=== PATIENT | male | born 1965 | race Two or more races ===

== ENCOUNTER 2018-10-06 16:49 | Inpatient (IN) | payer MEDICAID ==
[~2018-10-06] VITALS: Ht 200.7 cm; Wt 69.1 kg
[2018-10-06] MEDS ORDERED: cefTRIAXone 1GM/50ML D5W 50 ML IV ONE (19:30)
[2018-10-06] MEDS ORDERED: ONDANSETRON HCL 4 MG/2 ML VIAL IV PRN ×2 (19:30→23:15)
[2018-10-06] MEDS ORDERED: MORPHINE SULFATE 4 MG/ML SYR/VIAL IV PRN (19:30)
[2018-10-06] MEDS ORDERED: VANCOMYCIN 1GM/250ML 250 ML IV ONE (19:30)
[2018-10-06 20:24] LABS: Basophils # (auto) 0.1 uL; Basophils % (auto) 0.8 % (0.0-2.0); Eosinophils # (auto) 0.3 uL; Eosinophils % (auto) 3.8 % (0.0-7.0); Hematocrit 29.1 % (41.0-53.0); Hemoglobin 9.6 g/dL (13.5-17.5); Lymphocytes % (auto) 12.9 % (10.0-50.0); Mean Corpuscular Hemoglobin 28.6 pg (28.0-32.0); Mean Corpuscular Hgb Conc. 33.1 g/dL (32.0-36.0); Mean Corpuscular Volume 86.2 fL (80.0-100.0); Monocytes # (auto) 1.1 uL; Monocytes % (auto) 14.2 % (0.0-12.0); Neutrophils # (auto) 5.1 uL; Neutrophils % (auto) 68.3 % (37.0-80.0); Platelet Count (auto) 332 10^3/uL (140-450); Red Blood Cells 3.38 10^6/uL (4.5-5.90); Red Cell Distribution Width 15.1 % (11.8-14.3); White Blood Cell 7.5 10^3/uL (4.4-10.8)
[2018-10-06 20:36] LABS: Albumin 2.3 g/dL (3.4-5.0)
[2018-10-06 20:39] LABS: BUN/Creatinine Ratio 15.2; Bilirubin, Total 0.3 mg/dL (0.2-1.0); Total Protein 6.6 g/dL (6.4-8.2)
[2018-10-06 20:40] LABS: INR 0.89 (0.9-1.15); Partial Thromboplastin Time 30.8 sec (23.78-33.04); Prothrombin Time 9.6 sec (9.27-12.13)
[2018-10-06 20:50] LABS: Potassium 5.9 mmol/L (3.5-5.1)
[2018-10-06] MEDS ORDERED: DEXTROSE (50%) 50ML SYRG IV ONE (21:30)
[2018-10-06] MEDS ORDERED: InsuLIN REG 1unit/0.01ml Soln (100units/ml) IV ONE (21:30)
[2018-10-06] MEDS ORDERED: SODIUM POLYSTYRENE SULF 15 GM POWDER PR ONE (21:30)
[2018-10-06] MEDS ORDERED: SODIUM BICARBONATE 8.4 % INJ 50ML VIAL IV ONE (21:30)
[2018-10-06] MEDS ORDERED: ACETAMINOPHEN 325 MG TAB PO PRN (23:15)
[2018-10-06] MEDS ORDERED: DEXTROSE (50%) 50ML SYRG IV PRN (23:15)
[2018-10-06] MEDS ORDERED: HYDROcodone-ACET 5/325MG TAB PO PRN (23:15)
[2018-10-06] MEDS ORDERED: cloNIDine HCL 0.1 MG TAB PO PRN (23:15)
[2018-10-06] MEDS ORDERED: TEMAZEPAM 15 MG CAP PO PRN (23:15)
[2018-10-07] VITALS (7 sets, daily range): BP systolic 128–162; BP diastolic 77–98
[2018-10-07] MEDS ORDERED: DEXTROSE 50% SYRINGE 50 ML IV ONE (00:06)
[2018-10-07] MEDS: ACCU-CHEK COMFORT CURVE STRIP VI SCH ×5 (00:08→23:56)
[2018-10-07] MEDS: CLINDAMYCIN 600MG IV 50 ML IV SCH ×4 (00:09→21:59)
[2018-10-07 00:15] LABS: BUN/Creatinine Ratio 14.1; Calcium 7.9 mg/dL (8.5-10.1); Potassium 4.6 mmol/L (3.5-5.1)
[2018-10-07] MEDS ORDERED: DEXTROSE (50%) 50ML SYRG IV ONE (00:15)
[2018-10-07 00:18] LABS: Bilirubin, Total 0.3 mg/dL (0.2-1.0)
[2018-10-07] MEDS ORDERED: PANC3600 PO (04:45)
[2018-10-07] MEDS ORDERED: AMLO5TAB13 PO (04:46)
[2018-10-07] MEDS ORDERED: GABA300C10 PO (04:48)
[2018-10-07] MEDS ORDERED: FAMO-12 PO (04:49)
[2018-10-07] MEDS ORDERED: FER325T PO (04:52)
[2018-10-07] MEDS ORDERED: CARV12.544 PO (04:54)
[2018-10-07] MEDS ORDERED: LOSA-46 PO (04:56)
[2018-10-07] MEDS: InsuLIN REG 1unit/0.01ml Soln (100units/ml) SC SCH ×4 (06:00→18:00)
[2018-10-07 06:31] LABS: Basophils # (auto) 0.1 uL; Basophils % (auto) 0.8 % (0.0-2.0); Eosinophils # (auto) 0.1 uL; Hematocrit 27.5 % (41.0-53.0); Hemoglobin 9.1 g/dL (13.5-17.5); Lymphocytes # (auto) 0.8 uL; Lymphocytes % (auto) 11.7 % (10.0-50.0); Mean Corpuscular Hemoglobin 28.7 pg (28.0-32.0); Mean Corpuscular Hgb Conc. 33.2 g/dL (32.0-36.0); Mean Corpuscular Volume 86.6 fL (80.0-100.0); Monocytes # (auto) 0.7 uL; Monocytes % (auto) 10.1 % (0.0-12.0); Neutrophils # (auto) 5.3 uL; Neutrophils % (auto) 75.4 % (37.0-80.0); Nucleated Red Blood Cells % 0.1 %; Platelet Count (auto) 305 10^3/uL (140-450); Red Blood Cells 3.18 10^6/uL (4.5-5.90); Red Cell Distribution Width 15.3 % (11.8-14.3)
[2018-10-07 06:51] LABS: Albumin 1.8 g/dL (3.4-5.0); Calcium 7.7 mg/dL (8.5-10.1); Potassium 4.9 mmol/L (3.5-5.1)
[2018-10-07 06:54] LABS: Bilirubin, Total 0.2 mg/dL (0.2-1.0); Total Protein 5.5 g/dL (6.4-8.2)
[2018-10-07] MEDS: CREON 36000 UNIT PO SCH ×3 (08:15→18:02)
[2018-10-07] MEDS ORDERED: PNEUMOCOCCAL VACC POLYS 25 MCG/0.5 ML VIAL IM ONE (09:00)
[2018-10-07 10:11] LABS: Cholesterol 177 mg/dL (< 200)
[2018-10-07 10:14] LABS: HDL Cholesterol 46 mg/dL (40-59); LDL Cholesterol 111 mg/dL (< 100); Triglycerides 136 mg/dL (< 150)
[2018-10-07] MEDS: ENOXAPARIN SOD 30 MG/0.3 ML SYRINGE SC SCH (11:29)
[2018-10-07] MEDS: FAMOTIDINE 20 MG TAB PO SCH (11:31)
[2018-10-07] MEDS: GABAPENTIN 300 MG CAP PO SCH ×2 (15:44→22:00)
[2018-10-07] MEDS: FERROUS SULFATE 325 MG TAB PO SCH (18:02)
[2018-10-07 20:13] LABS: Urine Bacteria NONE SEEN /hpf (None Seen); Urine Blood 1+ /uL (Negative); Urine Mucus FEW (None Seen); Urine Specific Gravity 1.014 (1.001-1.035); Urine WBC 2 /hpf (0 - 3)
[2018-10-07 20:17] LABS: Alcohol, Urine < 3.0 mg/dL (0-5); Amphetamine Screen, Urine NEGATIVE (NEGATIVE); Barbiturate Scree,Urine NEGATIVE (NEGATIVE); Benzodiazephine Screen, Urine NEGATIVE (NEGATIVE); Cannabinoid Screen, Urine NEGATIVE (NEGATIVE); Cocaine Screen, Urine NEGATIVE (NEGATIVE); Opiate Scree,Urine NEGATIVE (NEGATIVE); Phencyclidine Screen, Urine NEGATIVE (NEGATIVE)
[2018-10-07] MEDS: cefTRIAXone 1GM/50ML D5W 50 ML IV SCH (20:26)
[2018-10-07] MEDS: CARVEDILOL 12.5 MG TAB PO SCH (21:59)
[2018-10-08] MEDS: InsuLIN REG 1unit/0.01ml Soln (100units/ml) SC SCH ×4 (00:03→18:21)
[2018-10-08 05:00] VITALS: BP 156/83
[2018-10-08 05:05] LABS: Basophils # (auto) 0.1 uL; Basophils % (auto) 1.2 % (0.0-2.0); Eosinophils # (auto) 0.3 uL; Eosinophils % (auto) 5.3 % (0.0-7.0); Hematocrit 29.9 % (41.0-53.0); Lymphocytes # (auto) 1.3 uL; Lymphocytes % (auto) 22.5 % (10.0-50.0); Mean Corpuscular Hemoglobin 28.9 pg (28.0-32.0); Mean Corpuscular Hgb Conc. 33.4 g/dL (32.0-36.0); Mean Corpuscular Volume 86.5 fL (80.0-100.0); Monocytes # (auto) 0.8 uL; Monocytes % (auto) 13.2 % (0.0-12.0); Neutrophils # (auto) 3.4 uL; Neutrophils % (auto) 57.8 % (37.0-80.0); Platelet Count (auto) 367 10^3/uL (140-450); Red Blood Cells 3.45 10^6/uL (4.5-5.90); Red Cell Distribution Width 15.5 % (11.8-14.3); White Blood Cell 5.9 10^3/uL (4.4-10.8)
[2018-10-08 05:29] LABS: Calcium 8.1 mg/dL (8.5-10.1); Potassium 4.3 mmol/L (3.5-5.1)
[2018-10-08] MEDS: ACCU-CHEK COMFORT CURVE STRIP VI SCH ×3 (05:55→18:17)
[2018-10-08] MEDS: CLINDAMYCIN 600MG IV 50 ML IV SCH ×3 (05:59→22:12)
[2018-10-08] MEDS: GABAPENTIN 300 MG CAP PO SCH ×3 (06:17→22:13)
[2018-10-08] MEDS: CREON 36000 UNIT PO SCH ×3 (08:31→18:21)
[2018-10-08] MEDS: FERROUS SULFATE 325 MG TAB PO SCH ×2 (08:31→18:21)
[2018-10-08 09:19] VITALS: BP 111/73
[2018-10-08] MEDS: FAMOTIDINE 20 MG TAB PO SCH (10:00)
[2018-10-08] MEDS ORDERED: LOSARTAN POTASSIUM 50 MG TAB PO SCH (10:00)
[2018-10-08] MEDS: THIAMINE HCL 100 MG TAB PO SCH (10:30)
[2018-10-08] MEDS: MULTIPLE VITAMINS W/ MINERALS TAB PO SCH (10:31)
[2018-10-08] MEDS: ENOXAPARIN SOD 30 MG/0.3 ML SYRINGE SC SCH (10:31)
[2018-10-08] MEDS: FOLIC ACID 1 MG TAB PO SCH (10:31)
[2018-10-08] MEDS: CARVEDILOL 12.5 MG TAB PO SCH ×2 (10:32→22:13)
[2018-10-08] MEDS: amLODIPine BESYLATE 5 MG TAB PO SCH (10:33)
[2018-10-08] MEDS: SODIUM BICARBONATE 50ML VIAL 50 ML in SOD CHL 0.45% 1,000 ML IV SCH ×2 (12:52→22:14)
[2018-10-08 13:29] VITALS: BP 137/88
[2018-10-08 13:48] LABS: Creatinine, Urine 67.8 mg/dL (30.0-125.0)
[2018-10-08 13:49] LABS: Protein, Urine 463.7 mg/dL (0.0-11.9)
[2018-10-08 17:00] VITALS: BP 108/68
[2018-10-08] MEDS: cefTRIAXone 1GM/50ML D5W 50 ML IV SCH (20:16)
[2018-10-08 22:00] VITALS: BP 117/66
[2018-10-09] MEDS: InsuLIN REG 1unit/0.01ml Soln (100units/ml) SC SCH ×4 (00:26→17:37)
[2018-10-09] MEDS: ACCU-CHEK COMFORT CURVE STRIP VI SCH ×4 (00:27→17:36)
[2018-10-09 05:50] VITALS: BP 132/75
[2018-10-09 05:53] LABS: Phosphorus 5.6 mg/dL (2.5-4.90); Uric Acid 6.3 mg/dL (3.5-7.2)
[2018-10-09 05:56] LABS: Albumin 1.7 g/dL (3.4-5.0); BUN/Creatinine Ratio 14.6; Calcium 7.3 mg/dL (8.5-10.1)
[2018-10-09 05:58] LABS: Bilirubin, Total 0.1 mg/dL (0.2-1.0); Total Protein 5.5 g/dL (6.4-8.2)
[2018-10-09] MEDS: GABAPENTIN 300 MG CAP PO SCH ×3 (06:12→21:49)
[2018-10-09] MEDS: CLINDAMYCIN 600MG IV 50 ML IV SCH ×3 (06:12→21:47)
[2018-10-09] MEDS: FERROUS SULFATE 325 MG TAB PO SCH ×2 (07:58→17:40)
[2018-10-09] MEDS: CREON 36000 UNIT PO SCH ×3 (07:59→18:02)
[2018-10-09 09:04] VITALS: BP 109/69
[2018-10-09] MEDS: ENOXAPARIN SOD 30 MG/0.3 ML SYRINGE SC SCH (09:52)
[2018-10-09] MEDS: THIAMINE HCL 100 MG TAB PO SCH (09:53)
[2018-10-09] MEDS: FOLIC ACID 1 MG TAB PO SCH (09:53)
[2018-10-09] MEDS: MULTIPLE VITAMINS W/ MINERALS TAB PO SCH (09:53)
[2018-10-09] MEDS: FAMOTIDINE 20 MG TAB PO SCH (09:53)
[2018-10-09] MEDS: CARVEDILOL 12.5 MG TAB PO SCH ×2 (10:01→21:47)
[2018-10-09] MEDS: amLODIPine BESYLATE 5 MG TAB PO SCH (10:02)
[2018-10-09] MEDS: SODIUM BICARBONATE 50ML VIAL 50 ML in SOD CHL 0.45% 1,000 ML IV SCH ×2 (10:43→19:31)
[2018-10-09] MEDS ORDERED: ERGOCALCIFEROL 50,000 UNIT(1.25MG) CAP PO SCH (10:45)
[2018-10-09] MEDS ORDERED: LIDOCAINE 2% (LOCAL ANESTH.) PF 5ml SDV ONE (11:10)
[2018-10-09 12:24] VITALS: BP 144/87
[2018-10-09 16:39] VITALS: BP 108/71
[2018-10-09] MEDS: cefTRIAXone 1GM/50ML D5W 50 ML IV SCH (20:19)
[2018-10-09 22:00] VITALS: BP 115/71
[2018-10-10] MEDS: InsuLIN REG 1unit/0.01ml Soln (100units/ml) SC SCH ×5 (00:31→23:56)
[2018-10-10] MEDS: ACCU-CHEK COMFORT CURVE STRIP VI SCH ×5 (00:31→23:46)
[2018-10-10 05:00] VITALS: BP 136/79
[2018-10-10 05:05] LABS: RPR Non Reactive (Non Reactive)
[2018-10-10] MEDS: SODIUM BICARBONATE 50ML VIAL 50 ML in SOD CHL 0.45% 1,000 ML IV SCH ×2 (06:14→15:15)
[2018-10-10] MEDS: GABAPENTIN 300 MG CAP PO SCH ×3 (06:14→21:25)
[2018-10-10] MEDS: CLINDAMYCIN 600MG IV 50 ML IV SCH ×3 (06:14→21:24)
[2018-10-10 06:45] LABS: Albumin 1.7 g/dL (3.4-5.0); Calcium 7.6 mg/dL (8.5-10.1); Potassium 4.7 mmol/L (3.5-5.1)
[2018-10-10 06:49] LABS: BUN/Creatinine Ratio 15.6; Bilirubin, Total 0.1 mg/dL (0.2-1.0); Total Protein 5.5 g/dL (6.4-8.2)
[2018-10-10] MEDS: CREON 36000 UNIT PO SCH ×3 (07:57→17:49)
[2018-10-10] MEDS: FERROUS SULFATE 325 MG TAB PO SCH ×2 (07:57→17:49)
[2018-10-10 08:05] LABS: Immunoglobulin G, Serum 829 mg/dL (700-1600)
[2018-10-10 09:10] VITALS: BP 125/74
[2018-10-10] MEDS: ENOXAPARIN SOD 30 MG/0.3 ML SYRINGE SC SCH (09:32)
[2018-10-10] MEDS: amLODIPine BESYLATE 5 MG TAB PO SCH (09:33)
[2018-10-10] MEDS: MULTIPLE VITAMINS W/ MINERALS TAB PO SCH (09:33)
[2018-10-10] MEDS: THIAMINE HCL 100 MG TAB PO SCH (09:33)
[2018-10-10] MEDS: FOLIC ACID 1 MG TAB PO SCH (09:33)
[2018-10-10] MEDS: CHOLECALCIFEROL (VITD3) 1,000 UNIT TAB PO SCH (09:34)
[2018-10-10] MEDS: CARVEDILOL 12.5 MG TAB PO SCH ×2 (09:34→21:25)
[2018-10-10] MEDS: FAMOTIDINE 20 MG TAB PO SCH (09:34)
[2018-10-10 11:16] VITALS: BP 121/78
[2018-10-10] MEDS ORDERED: HYDROcodone-ACET 5/325MG TAB PO PRN (13:15)
[2018-10-10 16:48] VITALS: BP 130/86
[2018-10-10] MEDS: cefTRIAXone 1GM/50ML D5W 50 ML IV SCH (20:33)
[2018-10-10 21:33] VITALS: BP 137/80
[2018-10-11] MEDS: SODIUM BICARBONATE 50ML VIAL 50 ML in SOD CHL 0.45% 1,000 ML IV SCH ×2 (03:09→19:02)
[2018-10-11 05:00] VITALS: BP 124/73
[2018-10-11 05:01] LABS: Basophils # (auto) 0.1 uL; Basophils % (auto) 1.3 % (0.0-2.0); Eosinophils # (auto) 0.3 uL; Eosinophils % (auto) 4.8 % (0.0-7.0); Hematocrit 28.3 % (41.0-53.0); Hemoglobin 9.4 g/dL (13.5-17.5); Lymphocytes % (auto) 17.4 % (10.0-50.0); Mean Corpuscular Hemoglobin 28.8 pg (28.0-32.0); Mean Corpuscular Hgb Conc. 33.1 g/dL (32.0-36.0); Monocytes # (auto) 0.6 uL; Monocytes % (auto) 10.3 % (0.0-12.0); Neutrophils # (auto) 3.9 uL; Neutrophils % (auto) 66.2 % (37.0-80.0); Nucleated Red Blood Cells % 0.1 %; Platelet Count (auto) 376 10^3/uL (140-450); Red Blood Cells 3.25 10^6/uL (4.5-5.90); Red Cell Distribution Width 15.3 % (11.8-14.3); White Blood Cell 5.9 10^3/uL (4.4-10.8)
[2018-10-11 05:20] LABS: BUN/Creatinine Ratio 14.4; Calcium 7.5 mg/dL (8.5-10.1); Potassium 4.9 mmol/L (3.5-5.1)
[2018-10-11] MEDS: CLINDAMYCIN 600MG IV 50 ML IV SCH ×3 (05:32→21:58)
[2018-10-11] MEDS: GABAPENTIN 300 MG CAP PO SCH ×3 (05:32→21:59)
[2018-10-11] MEDS: ACCU-CHEK COMFORT CURVE STRIP VI SCH ×3 (05:32→18:00)
[2018-10-11] MEDS: InsuLIN REG 1unit/0.01ml Soln (100units/ml) SC SCH ×3 (05:38→18:00)
[2018-10-11] MEDS: FERROUS SULFATE 325 MG TAB PO SCH ×2 (08:17→18:03)
[2018-10-11] MEDS: CREON 36000 UNIT PO SCH ×3 (08:18→18:04)
[2018-10-11 08:48] VITALS: BP 125/76
[2018-10-11] MEDS: FOLIC ACID 1 MG TAB PO SCH (10:11)
[2018-10-11] MEDS: CHOLECALCIFEROL (VITD3) 1,000 UNIT TAB PO SCH (10:11)
[2018-10-11] MEDS: amLODIPine BESYLATE 5 MG TAB PO SCH (10:13)
[2018-10-11] MEDS: FAMOTIDINE 20 MG TAB PO SCH (10:13)
[2018-10-11] MEDS: CARVEDILOL 12.5 MG TAB PO SCH ×2 (10:14→21:59)
[2018-10-11] MEDS: THIAMINE HCL 100 MG TAB PO SCH (10:14)
[2018-10-11] MEDS: ENOXAPARIN SOD 30 MG/0.3 ML SYRINGE SC SCH (10:14)
[2018-10-11] MEDS: MULTIPLE VITAMINS W/ MINERALS TAB PO SCH (10:14)
[2018-10-11 11:59] VITALS: BP 135/85
[2018-10-11] MEDS ORDERED: MORPHINE SULFATE 4 MG/ML SYR/VIAL IV PRN (14:30)
[2018-10-11 16:26] VITALS: BP 113/76
[2018-10-11 19:21] LABS: Hepatitis B Surface Antigen Negative (Negative); Hepatitis C Antibody Negative (Negative)
[2018-10-11] MEDS: cefTRIAXone 1GM/50ML D5W 50 ML IV SCH (20:18)
[2018-10-11 22:00] VITALS: BP 139/87
[2018-10-12] MEDS: InsuLIN REG 1unit/0.01ml Soln (100units/ml) SC SCH ×4 (00:47→16:56)
[2018-10-12] MEDS: SODIUM BICARBONATE 50ML VIAL 50 ML in SOD CHL 0.45% 1,000 ML IV SCH ×2 (04:25→16:47)
[2018-10-12 05:00] VITALS: BP 114/69
[2018-10-12] MEDS: ACCU-CHEK COMFORT CURVE STRIP VI SCH ×4 (06:18→16:55)
[2018-10-12] MEDS: GABAPENTIN 300 MG CAP PO SCH ×2 (06:25→14:38)
[2018-10-12] MEDS: CLINDAMYCIN 600MG IV 50 ML IV SCH ×2 (06:25→14:39)
[2018-10-12 08:00] VITALS: BP 121/97
[2018-10-12 08:02] VITALS: BP 121/97
[2018-10-12 08:32] LABS: BUN/Creatinine Ratio 13.3; Calcium 7.7 mg/dL (8.5-10.1); Potassium 4.7 mmol/L (3.5-5.1)
[2018-10-12] MEDS: CREON 36000 UNIT PO SCH ×2 (08:38→12:48)
[2018-10-12] MEDS: FERROUS SULFATE 325 MG TAB PO SCH (08:39)
[2018-10-12] MEDS: CARVEDILOL 12.5 MG TAB PO SCH (10:05)
[2018-10-12] MEDS: CHOLECALCIFEROL (VITD3) 1,000 UNIT TAB PO SCH (10:06)
[2018-10-12] MEDS: THIAMINE HCL 100 MG TAB PO SCH (10:06)
[2018-10-12] MEDS: amLODIPine BESYLATE 5 MG TAB PO SCH (10:06)
[2018-10-12] MEDS: MULTIPLE VITAMINS W/ MINERALS TAB PO SCH (10:06)
[2018-10-12] MEDS: FOLIC ACID 1 MG TAB PO SCH (10:06)
[2018-10-12] MEDS: FAMOTIDINE 20 MG TAB PO SCH (10:06)
[2018-10-12] MEDS: ENOXAPARIN SOD 30 MG/0.3 ML SYRINGE SC SCH (10:07)
[2018-10-12] MEDS ORDERED: SACC250C PO (11:35)
[2018-10-12] MEDS ORDERED: CLIN1CAP4 PO (11:35)
[2018-10-12 12:56] VITALS: BP 116/73
[2018-10-12 15:16] VITALS: BP 116/73
[2018-10-12 16:25] VITALS: BP 108/64
== END 2018-10-12 17:40 | disposition home or self-care (01) | DRG 383 ==
LOC: ER 16:54 → EDBD 16:54 → WEST WING 23:49 → CENTRAL 10-12 01:00
PROVIDERS: ADMIT Nurse Practitioner; ATTEND Internal Medicine
PROC: 0JBR0ZZ Excision of Left Foot Subcutaneous Tissue and Fascia, Open Approach (ICD-10-PCS; principal; 2018-10-09)
PROC: 0JBQ0ZZ Excision of Right Foot Subcutaneous Tissue and Fascia, Open Approach (ICD-10-PCS; 2018-10-09)
DX: L03.116 Cellulitis of left lower limb (principal); N17.0 Acute kidney failure with tubular necrosis; E43 Unspecified severe protein-calorie malnutrition; E11.21 Type 2 diabetes mellitus with diabetic nephropathy; E11.319 Type 2 diabetes mellitus with unspecified diabetic retinopathy without macular edema; E87.2 Acidosis; K86.1 Other chronic pancreatitis; S92.322A Displaced fracture of second metatarsal bone, left foot, initial encounter for closed fracture; D63.8 Anemia in other chronic diseases classified elsewhere; E11.621 Type 2 diabetes mellitus with foot ulcer; E11.22 Type 2 diabetes mellitus with diabetic chronic kidney disease; E87.5 Hyperkalemia; Z68.1 Body mass index [BMI] 19.9 or less, adult; K70.30 Alcoholic cirrhosis of liver without ascites; S92.332A Displaced fracture of third metatarsal bone, left foot, initial encounter for closed fracture; S92.342A Displaced fracture of fourth metatarsal bone, left foot, initial encounter for closed fracture; N18.4 Chronic kidney disease, stage 4 (severe); E11.65 Type 2 diabetes mellitus with hyperglycemia; E11.42 Type 2 diabetes mellitus with diabetic polyneuropathy; Z83.3 Family history of diabetes mellitus; E78.5 Hyperlipidemia, unspecified; L97.509 Non-pressure chronic ulcer of other part of unspecified foot with unspecified severity; I12.9 Hypertensive chronic kidney disease with stage 1 through stage 4 chronic kidney disease, or unspecified chronic kidney disease; M85.80 Other specified disorders of bone density and structure, unspecified site; E11.622 Type 2 diabetes mellitus with other skin ulcer; E11.51 Type 2 diabetes mellitus with diabetic peripheral angiopathy without gangrene; E55.9 Vitamin D deficiency, unspecified; W19.XXXA Unspecified fall, initial encounter; Y93.89 Activity, other specified; Y92.89 Other specified places as the place of occurrence of the external cause; Y99.8 Other external cause status
CPT/HCPCS: 36415; 71046; 73630; 73700; 76775; 80048; 80053; 80061; 80307; 80320; 81001; 82306; 82570; 82784; 82962; 83036; 83605; 83970; 84100; 84156; 84300; 84550; 85025; 85610; 85730; 86334; 86335; 86592; 86803; 87040; 87077; 87186; 87205; 87340; 93926; 93971; 96365; 96367; 96372; 96375; G0378; J0696; J1815; J2001; J3490

== ENCOUNTER 2019-05-18 01:20 | Inpatient (IN) | payer MEDICAID ==
[~2019-05-18] VITALS: Ht 175.3 cm; Wt 69.1 kg
[~2019-05-18 01:20] MED LIST: AMLO5TAB13 PO; CARV12.544 PO; CLIN1CAP4 PO; FAMO-12 PO; FER325T PO; GABA300C10 PO; PANC3600 PO; SACC250C PO
[2019-05-18 02:42] LABS: Basophils # (auto) 0.1 uL; Basophils % (auto) 0.9 % (0.0-2.0); Eosinophils # (auto) 0.2 uL; Eosinophils % (auto) 2.6 % (0.0-7.0); Hematocrit 31.9 % (41.0-53.0); Hemoglobin 10.6 g/dL (13.5-17.5); Lymphocytes % (auto) 13.9 % (10.0-50.0); Mean Corpuscular Hemoglobin 28.9 pg (28.0-32.0); Mean Corpuscular Hgb Conc. 33.1 g/dL (32.0-36.0); Mean Corpuscular Volume 87.2 fL (80.0-100.0); Monocytes # (auto) 0.5 uL; Monocytes % (auto) 7.6 % (0.0-12.0); Neutrophils # (auto) 5.4 uL; Platelet Count (auto) 364 10^3/uL (140-450); Red Blood Cells 3.66 10^6/uL (4.5-5.90); Red Cell Distribution Width 14.1 % (11.8-14.3); White Blood Cell 7.1 10^3/uL (4.4-10.8)
[2019-05-18 02:54] LABS: Albumin 2.1 g/dL (3.4-5.0); Anion Gap 13 (5-15); Calcium 7.8 mg/dL (8.5-10.1); Carbon Dioxide 17 mmol/L (21-32); Chloride 99 mmol/L (98-107); Magnesium 2.8 mg/dL (1.6-2.6); Potassium 4.7 mmol/L (3.5-5.1); Sodium 129 mmol/L (136-145)
[2019-05-18 02:56] LABS: INR < 0.93 (0.9-1.15); Partial Thromboplastin Time 25.1 sec (23.64-32.05)
[2019-05-18 03:03] LABS: Alanine Aminotransferase 31 U/L (16-61); Alkaline Phosphatase 171 U/L (45-117); Aspartate Aminotransferase 15 U/L (15-37); BUN/Creatinine Ratio 14.5; Bilirubin, Total 0.2 mg/dL (0.2-1.0); GFR African American 13 mL/min; GFR Non-African American 11 mL/min; Total Protein 6.3 g/dL (6.4-8.2)
[2019-05-18 03:14] LABS: Glucose 596 mg/dL (74-106)
[2019-05-18 03:15] LABS: Blood Urea Nitrogen 84 mg/dL (7-18)
[2019-05-18] MEDS ORDERED: SODIUM CHLORIDE 0.9% 500 ML IV ONE (03:15)
[2019-05-18] MEDS ORDERED: InsuLIN REG 1unit/0.01ml Soln (100units/ml) IV ONE (03:15)
[2019-05-18] MEDS ORDERED: cloNIDine HCL 0.1 MG TAB ONE (03:27)
[2019-05-18] MEDS ORDERED: cloNIDine HCL 0.1 MG TAB PO ONE (03:30)
[2019-05-18] MEDS ORDERED: SODIUM BICARBONATE 50ML VIAL 50 ML in SOD CHL 0.45% 1,000 ML IV ONE (04:15)
[2019-05-18] MEDS ORDERED: DEXTROSE (50%) 50ML SYRG IV PRN (05:30)
[2019-05-18] MEDS ORDERED: NITROGLYCERIN 0.4 MG SL TAB SL PRN (05:30)
[2019-05-18] MEDS ORDERED: LABETALOL HCL 5 MG/ML ML 20ML VIAL IV ONE (05:30)
[2019-05-18] MEDS ORDERED: ONDANSETRON HCL 4 MG/2 ML VIAL IV PRN (05:30)
[2019-05-18] MEDS ORDERED: MORPHINE SULF INJ 2 MG/ML SYRINGE 1ML IV PRN (05:30)
[2019-05-18] MEDS ORDERED: cloNIDine HCL 0.1 MG TAB PO PRN (05:30)
[2019-05-18] MEDS ORDERED: TEMAZEPAM 15 MG CAP PO PRN (05:30)
--- NOTE | 2019-05-18 06:30 | NUR ---
Telemetry admit from KIMBERLY MCFADDEN admitted to Telemetry unit after no SBAR was received. Patient oriented to DON JOHNSON RN primary RN, unit, room, bed, and unit policies regarding patient care and visiting hours. Patient now on continuous telemetry monitoring, tele box # 21 and telemetry reading on arrival to unit is sinus rhythm. He is A/O x4, no complaints of pain or S/S of distress or SOB. Family is at bedside to assist with the admission, patient is primarily faroese speaking. Call light is within reach, bed is in lowest position. Patient weighed by bedscale and encouraged to call if they need something. All questions and concerns addressed, patient verbalized understanding.
[2019-05-18 06:44] VITALS: BP 153/96
[2019-05-18 07:26] LABS: Amylase 37 U/L (25-115); Lipase 401 U/L (73-393)
--- NOTE | 2019-05-18 07:30 | NUR ---
Opening Shift Note Assuming care of patient at this time. Patient is awake and alert. Patient denies pain at this time. Patient shows no signs or symptoms of distress. Patient is resting in bed. Bed is locked and lowered with side rails up x2. Patient is [place] Islander speaking. Instructed patient on the plan of care for today and to call for assistance as needed. Son at bedside to translate. Will continue to round hourly and as needed.
[2019-05-18] MEDS ORDERED: ATOR10TA PO (07:54)
--- NOTE | 2019-05-18 07:58 | NUR ---
Endorsed care to maggy Macedo.
[2019-05-18] MEDS: PANCREATIC ENZYMES 4200 UNIT CAP PO SCH ×3 (08:46→18:06)
[2019-05-18] MEDS: FERROUS SULFATE 325 MG TAB PO SCH ×2 (08:46→18:06)
[2019-05-18] MEDS: InsuLIN REG 1unit/0.01ml Soln (100units/ml) SC SCH ×5 (08:47→23:46)
[2019-05-18] MEDS: ACCU-CHEK COMFORT CURVE STRIP VI SCH ×5 (08:48→23:46)
--- NOTE | 2019-05-18 09:00 | NUR ---
Family at bedside Son and daughter at bedside.
--- NOTE | 2019-05-18 09:15 | NUR ---
Martin catheter insertion Patient assessed and determined to be in need of martin catheter. Order obtained from MD. Patient educated on catheter and reason for insertion. All questions answered. Martin catheter 16 gauge Uzbek inserted with clean sterile technique. Patient tolerated well.
[2019-05-18] MEDS: CARVEDILOL 12.5 MG TAB PO SCH ×2 (09:43→21:40)
[2019-05-18] MEDS: amLODIPine BESYLATE 5 MG TAB PO SCH (09:44)
[2019-05-18] MEDS: GABAPENTIN 300 MG CAP PO SCH (09:44)
--- NOTE | 2019-05-18 09:45 | NUR ---
Daughter at bedside Son has left. Daughter at bedside.
[2019-05-18] MEDS: PANTOPRAZOLE 40 MG TAB PO SCH (09:48)
[2019-05-18] MEDS: SODIUM BICARBONATE 50ML VIAL 75 ML in SOD CHL 0.45% 1,000 ML IV SCH ×3 (09:52→23:20)
[2019-05-18 10:03] LABS: Alcohol, Urine < 3.0 mg/dL (0-5); Amphetamine Screen, Urine NEGATIVE (NEGATIVE); Barbiturate Scree,Urine NEGATIVE (NEGATIVE); Benzodiazephine Screen, Urine NEGATIVE (NEGATIVE); Cannabinoid Screen, Urine NEGATIVE (NEGATIVE); Cocaine Screen, Urine NEGATIVE (NEGATIVE); Opiate Scree,Urine NEGATIVE (NEGATIVE); Phencyclidine Screen, Urine NEGATIVE (NEGATIVE)
[2019-05-18 10:08] LABS: Protein, Urine 384.4 mg/dL (0.0-11.9)
[2019-05-18 10:15] LABS: Urine Bacteria FEW /hpf (None Seen); Urine Blood TRACE /uL (Negative); Urine Hyaline Cast FEW /lpf (0 - 2); Urine Specific Gravity 1.013 (1.001-1.035); Urine WBC 2 /hpf (0 - 3)
[2019-05-18 11:14] LABS: Cholesterol 287 mg/dL (< 200); Triglycerides 397 mg/dL (< 150)
[2019-05-18 11:16] LABS: HDL Cholesterol 47 mg/dL (40-59); LDL Cholesterol 180 mg/dL (< 100)
[2019-05-18 13:33] VITALS: BP 106/69
--- NOTE | 2019-05-18 16:30 | NUR ---
Re: Patient on bedpan Patient's daughter has stated that he would like to use the bathroom. Brought in a bedside commode for patient, however, patient was too weak to get up. Turned patient to place bed barney under him. Patient has already had a small amount of stool come out onto bed. Patient states that he still has to go. Placed bedpan under patient. Encouraged patient and daughter to call me when he is finished to remove bed barney from him.
--- NOTE | 2019-05-18 16:53 | NUR ---
Re: Patient status Patient has appeared to be really weak. Concerned there might be a change in status. Questioned daughter, at bedside, if patient's is always in this state. Daughter replied, "yes." Daughter states that patient has been sleeping all day at home, too weak to get up. Daughter states that they (herself and brother) try to feed him different things, however, he hardly eats and has no appetite. Patient's status appears to be his baseline. Will continue to round hourly and monitor vitals and blood sugar.
[2019-05-18 17:00] VITALS: BP 84/56
--- NOTE | 2019-05-18 17:00 | NUR ---
Low Blood Pressure Received blood pressure from RESTAURANT CREW MEMBER, 84/56. Rechecked blood pressure it is now 92/55. Patient has been asymptomatic.
[2019-05-18 17:06] VITALS: BP 92/55
--- NOTE | 2019-05-18 19:12 | NUR ---
Closing Shift Note Patient is resting in bed. Patient denies pain. Patient states that he is feeling weak. Report given. Will endorse care to the slot shift supervisor RN.
--- NOTE | 2019-05-18 19:15 | NUR ---
Opening Shift Note Assumed care of patient from day shift RN Hellen. Pt is awake and alert and oriented x4. No S/S of distress/SOB or pain. Safety maintained with bed rails upx2, locked and in lowest position with call sanders within reach. Instructed on POC and to call for assist PRN, will continue to monitor for changes Q1hr and PRN. Family at bedside.
[2019-05-18] MEDS: ATORVASTATIN 20 MG TAB PO SCH (21:45)
[2019-05-18 22:00] VITALS: BP 104/69
[2019-05-19] MEDS: InsuLIN REG 1unit/0.01ml Soln (100units/ml) SC SCH ×6 (04:00→23:57)
[2019-05-19] MEDS: ACCU-CHEK COMFORT CURVE STRIP VI SCH ×6 (04:05→23:51)
[2019-05-19] MEDS: SODIUM BICARBONATE 50ML VIAL 75 ML in SOD CHL 0.45% 1,000 ML IV SCH ×2 (04:06→23:50)
[2019-05-19 04:30] VITALS: BP 105/71
[2019-05-19 05:48] LABS: Basophils # (auto) 0.1 uL; Basophils % (auto) 1.3 % (0.0-2.0); Eosinophils # (auto) 0.2 uL; Eosinophils % (auto) 2.6 % (0.0-7.0); Hematocrit 24.8 % (41.0-53.0); Hemoglobin 8.6 g/dL (13.5-17.5); Lymphocytes # (auto) 1.7 uL; Lymphocytes % (auto) 21.5 % (10.0-50.0); Mean Corpuscular Hemoglobin 29.4 pg (28.0-32.0); Mean Corpuscular Hgb Conc. 34.5 g/dL (32.0-36.0); Mean Corpuscular Volume 85.3 fL (80.0-100.0); Monocytes # (auto) 0.8 uL; Monocytes % (auto) 9.8 % (0.0-12.0); Neutrophils # (auto) 5.1 uL; Neutrophils % (auto) 64.8 % (37.0-80.0); Platelet Count (auto) 282 10^3/uL (140-450); Red Blood Cells 2.91 10^6/uL (4.5-5.90); Red Cell Distribution Width 13.6 % (11.8-14.3); White Blood Cell 7.9 10^3/uL (4.4-10.8)
[2019-05-19 06:08] LABS: Potassium 4.4 mmol/L (3.5-5.1)
[2019-05-19 06:19] LABS: Albumin 1.7 g/dL (3.4-5.0); BUN/Creatinine Ratio 13.9; Bilirubin, Total 0.2 mg/dL (0.2-1.0); Calcium 7.6 mg/dL (8.5-10.1); Magnesium 2.6 mg/dL (1.6-2.6)
--- NOTE | 2019-05-19 06:23 | NUR ---
CRITICAL LAB BUN 81. DR. ANDRADE ALREADY AWARE.
--- NOTE | 2019-05-19 07:30 | NUR ---
Opening Shift Note Assuming care of patient at this time. Patient is awake and alert. Patient denies pain at this time. Patient shows no signs or symptoms of distress. Patient is resting in bed. Bed is locked and lowered with side rails up x2. Instructed patient on the plan of care for today and to call for assistance as needed. Patient verbalized understanding. Patient states that he is feeling much better today. Will continue to round hourly and as needed.
--- NOTE | 2019-05-19 08:30 | NUR ---
Patient Status Patient is awake, sitting up in bed, eating breakfast. Patient appears to have an increase in appetite. Patient states that he is feeling better. Patient appears to be doing well, not as weak as yesterday and more alert. Will continue to round hourly and as needed.
[2019-05-19] MEDS: FERROUS SULFATE 325 MG TAB PO SCH ×2 (08:40→18:03)
[2019-05-19] MEDS: PANCREATIC ENZYMES 4200 UNIT CAP PO SCH ×3 (08:40→18:03)
--- NOTE | 2019-05-19 09:46 | NUR ---
at bedside/Refusing dialysis Dr. Perez at bedside discussing plan of care with patient and this RN. Dr. Perez discussing with patient that he might need to consider dialysis. Patient is refusing because he "doesn't feel bad." Dr. Perez educated patient on the need for dialysis and the risks including organ/system failure. However, patient is adamant about not getting dialysis. Dr. Perez continued to educate patient and explain the risk and benefits. Ultimately, when patient is asked if he would consider or like to undergo dialysis, patient states, "No."
[2019-05-19] MEDS: CARVEDILOL 12.5 MG TAB PO SCH ×2 (10:00→21:50)
[2019-05-19] MEDS: amLODIPine BESYLATE 5 MG TAB PO SCH (10:00)
[2019-05-19] MEDS: GABAPENTIN 300 MG CAP PO SCH (10:51)
[2019-05-19] MEDS: PANTOPRAZOLE 40 MG TAB PO SCH (10:51)
--- NOTE | 2019-05-19 12:23 | NUR ---
Nutrition consult/assessment Notes please see attached link for complete assessment Est. Needs IBW [id number] kcal (25-30kcal/kgBW), 57-72 gms pro (0.8-1.0 gms/kgBW r/t elev RFT CKD severe hypoalb). Will continue to monitor pertinent labs and reassess nutrient need prn. Addendum: 05/19/19 at [address] La O [address] Amended: Links added.
[2019-05-19] MEDS: HEPARIN SODIUM (PORCINE) 5000 UNITS/ML 1ML VIAL SC SCH ×2 (12:35→21:57)
[2019-05-19] MEDS: CALCIUM ACETATE 667 MG CAP PO SCH ×2 (12:37→18:03)
--- NOTE | 2019-05-19 13:30 | NUR ---
Bedside Commode/Stool sample Patient has been assisted to bedside commode. Patient had a bowel movement. Stool sample sent to lab.
[2019-05-19 13:32] VITALS: BP_SYST 103; BP_SYST 112; BP_DIAS 70; BP_DIAS 73
[2019-05-19 16:46] VITALS: BP 131/85
--- NOTE | 2019-05-19 18:52 | NUR ---
Closing Shift Note Patient is resting in bed. Patient denies pain. Patient continues to state that he is feeling much better today. Patient appears to be less weak than yesterday. Patient's appetite has increased. Will endorse care to the night shift manager RN.
--- NOTE | 2019-05-19 19:15 | NUR ---
Opening Shift Note Assumed care of patient from day shift RN Hellen. Pt is awake and alert and oriented x4. No S/S of distress/SOB or pain. Toney intact, patent, draining to gravity. Safety maintained with bed rails upx2, locked and in lowest position with call sanders within reach. Instructed on POC and to call for assist PRN, will continue to monitor for changes Q1hr and PRN.
[2019-05-19] MEDS: ATORVASTATIN 20 MG TAB PO SCH (21:54)
[2019-05-19 22:00] VITALS: BP 124/75
[2019-05-19] MEDS ORDERED: SODIUM BICARBONATE 8.4 % INJ 50ML VIAL IV ONE (23:43)
[2019-05-20] MEDS: InsuLIN REG 1unit/0.01ml Soln (100units/ml) SC SCH ×5 (04:00→20:26)
[2019-05-20] MEDS: ACCU-CHEK COMFORT CURVE STRIP VI SCH ×5 (04:01→20:26)
[2019-05-20 05:00] VITALS: BP 113/67
[2019-05-20 06:51] LABS: % Iron Saturation 23.6 % (20-55)
[2019-05-20 06:57] LABS: BUN/Creatinine Ratio 13.5; Calcium 7.1 mg/dL (8.5-10.1); Potassium 4.2 mmol/L (3.5-5.1)
[2019-05-20 07:05] LABS: Basophils # (auto) 0.1 uL; Eosinophils # (auto) 0.2 uL; Eosinophils % (auto) 2.2 % (0.0-7.0); Hematocrit 23.4 % (41.0-53.0); Hemoglobin 7.9 g/dL (13.5-17.5); Lymphocytes # (auto) 1.2 uL; Lymphocytes % (auto) 13.5 % (10.0-50.0); Mean Corpuscular Hemoglobin 29.1 pg (28.0-32.0); Mean Corpuscular Hgb Conc. 33.6 g/dL (32.0-36.0); Mean Corpuscular Volume 86.4 fL (80.0-100.0); Monocytes # (auto) 0.9 uL; Monocytes % (auto) 9.8 % (0.0-12.0); Neutrophils # (auto) 6.7 uL; Neutrophils % (auto) 73.5 % (37.0-80.0); Platelet Count (auto) 278 10^3/uL (140-450); Red Blood Cells 2.71 10^6/uL (4.5-5.90); Red Cell Distribution Width 13.9 % (11.8-14.3); White Blood Cell 9.1 10^3/uL (4.4-10.8)
--- NOTE | 2019-05-20 07:20 | NUR ---
CRITICAL LAB BUN 81. DR. BAJWA AND DR. ANDRADE ALREADY AWARE.
--- NOTE | 2019-05-20 08:00 | NUR ---
Morning note patient resting in bed with even and unlabored respirations, no distress noted. Instructed patient on POC, fall precautions and to call for assistance as needed. Patient verbalized understanding. Fall precautions in place with call light within reach. Will continue to monitor q1hr & PRN.
[2019-05-20] MEDS: FERROUS SULFATE 325 MG TAB PO SCH ×2 (08:55→18:00)
[2019-05-20] MEDS: PANTOPRAZOLE 40 MG TAB PO SCH (08:56)
[2019-05-20] MEDS: CALCIUM ACETATE 667 MG CAP PO SCH ×3 (08:56→18:00)
[2019-05-20] MEDS: GABAPENTIN 300 MG CAP PO SCH (08:57)
[2019-05-20] MEDS: amLODIPine BESYLATE 5 MG TAB PO SCH (08:57)
[2019-05-20] MEDS: CARVEDILOL 12.5 MG TAB PO SCH ×2 (08:58→22:24)
[2019-05-20] MEDS: PANCREATIC ENZYMES 4200 UNIT CAP PO SCH ×3 (08:59→18:00)
[2019-05-20] MEDS: HEPARIN SODIUM (PORCINE) 5000 UNITS/ML 1ML VIAL SC SCH ×2 (09:01→22:26)
[2019-05-20 09:14] VITALS: BP 132/78
[2019-05-20 10:52] LABS: Hepatitis B Surface Antibody Negative
[2019-05-20 11:11] LABS: Hepatitis A Total Antibody Negative
[2019-05-20 12:59] VITALS: BP 135/84
[2019-05-20 13:02] LABS: Hepatitis B Core Total AB Negative; Hepatitis B Surface Antigen Negative (Negative)
[2019-05-20 13:03] LABS: Hepatitis C Antibody Negative (Negative)
[2019-05-20] MEDS: EPOETIN ALFA 10,000 UNIT/1 ML VIAL IV SCH (15:04)
[2019-05-20] MEDS: SEVELAMER 800 MG TAB PO SCH ×2 (15:04→18:09)
[2019-05-20 16:49] VITALS: BP 132/82
[2019-05-20] MEDS: Glucerna Carbsteady SHAKE Vanilla 8oz PO SCH (18:00)
--- NOTE | 2019-05-20 18:45 | NUR ---
Closing note patient resting in bed with even and unlabored respirations, no distress noted. Fall precautions in place with call light within reach. Patient is NPO for ordered ultrasound per MD's order.
--- NOTE | 2019-05-20 19:27 | NUR ---
Care endorsed to Roma Dye RN.
[2019-05-20 20:00] VITALS: BP 121/72
--- NOTE | 2019-05-20 20:19 | NUR ---
ULTRA SOUND TO SINGLE ORGAN COMPLETE.
[2019-05-20 22:00] VITALS: BP 121/72
[2019-05-20] MEDS ORDERED: HEPARIN SODIUM (PORCINE) 5000 UNITS/ML 1ML VIAL ONE (22:19)
[2019-05-20] MEDS: SODIUM BICARBONATE 650 MG TAB PO SCH (22:23)
[2019-05-20] MEDS: ATORVASTATIN 20 MG TAB PO SCH (22:24)
[2019-05-21] VITALS (7 sets, daily range): BP systolic 98–125; BP diastolic 65–74
[2019-05-21] MEDS: ACCU-CHEK COMFORT CURVE STRIP VI SCH ×6 (00:18→21:16)
[2019-05-21] MEDS: InsuLIN REG 1unit/0.01ml Soln (100units/ml) SC SCH ×6 (00:18→21:15)
--- NOTE | 2019-05-21 04:30 | NUR ---
PATIENT STATED THAT HE HAD NOT TAKEN HIS HOME MEDICATIONS AND HAD NOT CHECKED HIS BLOOD SUGAR FOR OVER TWO MONTHS BEFORE COMING TO THE HOSPITALIST. WHEN ASKED WHY HE STATED THAT HE WAS JUST TIRED OF TAKING SO MANY MEDICATIONS AND CHECKING HIS BLOOD SUGAR.
[2019-05-21 06:04] LABS: Anion Gap 12 (5-15); Calcium 6.9 mg/dL (8.5-10.1); Carbon Dioxide 17 mmol/L (21-32); Chloride 109 mmol/L (98-107); Glucose 184 mg/dL (74-106); Potassium 4.7 mmol/L (3.5-5.1); Sodium 138 mmol/L (136-145)
[2019-05-21 06:06] LABS: BUN/Creatinine Ratio 14.4; GFR African American 12 mL/min; GFR Non-African American 10 mL/min
[2019-05-21 06:27] LABS: Blood Urea Nitrogen 90 mg/dL (7-18)
--- NOTE | 2019-05-21 06:59 | NUR ---
CRITICAL BUN 90 HOSPITALIST URBAN [facility]ESLEY ENVIRONMENTAL REMEDIATION SPECIALIST IS AWARE.
[2019-05-21] MEDS: Glucerna Carbsteady SHAKE Vanilla 8oz PO SCH ×3 (08:00→18:00)
[2019-05-21] MEDS: SEVELAMER 800 MG TAB PO SCH ×3 (08:38→18:05)
[2019-05-21] MEDS: CALCIUM ACETATE 667 MG CAP PO SCH ×3 (08:39→18:05)
[2019-05-21] MEDS: FERROUS SULFATE 325 MG TAB PO SCH ×2 (08:39→18:05)
[2019-05-21] MEDS: PANCREATIC ENZYMES 4200 UNIT CAP PO SCH ×3 (08:39→18:05)
--- NOTE | 2019-05-21 09:00 | NUR ---
PATIENT MOVED TO [facility] BY HIMSELF AFTER BEING EDUCATED ON THE RISK FOR FALL DUE TO WEAKNESS. BOWEL MOVEMENT TODAY 05/21/19 PATIENT STATES HE IS FEELING WEAK AND HAS NO ENERGY TO GET UP. MOVED PATIENT WIT ASSIST BACK TO BED. PATIENT STATES HE IS FEELING DIZZY AND TIRED. WILL CONTINUE TO MONITOR. BED ALARM PLACED AND RE EDUCATED PATIENT ON THE NEED TO PRESS CALL LIGHT AND NOT GET OUT OF BED.
[2019-05-21] MEDS: amLODIPine BESYLATE 5 MG TAB PO SCH (10:00)
[2019-05-21] MEDS: CARVEDILOL 12.5 MG TAB PO SCH ×2 (10:00→21:14)
[2019-05-21] MEDS: HEPARIN SODIUM (PORCINE) 5000 UNITS/ML 1ML VIAL SC SCH ×2 (10:11→21:22)
[2019-05-21] MEDS: SODIUM BICARBONATE 650 MG TAB PO SCH ×2 (10:16→21:14)
[2019-05-21] MEDS: PANTOPRAZOLE 40 MG TAB PO SCH (10:17)
[2019-05-21] MEDS: GABAPENTIN 300 MG CAP PO SCH (10:17)
--- NOTE | 2019-05-21 11:03 | NUR ---
Opening Shift Note Assumed care of patient, awake and alert. No S/S of distress/SOB or pain. Instructed on POC and to call for assist PRN, will continue to monitor for changes Q1hr and PRN. Bed locked in lowest position with two side rails up and call light in reach.
[2019-05-21 11:56] LABS: Hematocrit 24.7 % (41.0-53.0); Hemoglobin 8.1 g/dL (13.5-17.5); Mean Corpuscular Hemoglobin 28.5 pg (28.0-32.0); Mean Corpuscular Hgb Conc. 32.6 g/dL (32.0-36.0); Mean Corpuscular Volume 87.2 fL (80.0-100.0); Platelet Count (auto) 264 10^3/uL (140-450); Red Blood Cells 2.83 10^6/uL (4.5-5.90); Red Cell Distribution Width 14.3 % (11.8-14.3); White Blood Cell 11.3 10^3/uL (4.4-10.8)
[2019-05-21 12:06] LABS: Basophils % (manual) 0 (0.0-2.0); Blast Cells 0; Eosinophils % (manual) 0 (0-7); Metamyelocytes % 0; Myelocytes % 0; Promyelocytes % 0; Reactive Lymphocytes 0
[2019-05-21 12:12] LABS: INR < 0.93 (0.9-1.15); Partial Thromboplastin Time 28.7 sec (23.64-32.05)
[2019-05-21 13:18] LABS: Band Neutrophils % (manual) 3; Lymphocytes % (manual) 10 (10.0-50.0); Monocytes % (manual) 8 (0-12)
--- NOTE | 2019-05-21 19:00 | NUR ---
ASSUMED PATIENT CARE- NOC SHIFT PATIENT IS ALERT AND ORIENTED X4, ANSWERS IN COMPLETE SENTENCES AND MAKES APPROPRIATE EYE CONTACT. PATIENT IS IN BED, BED IS LOCKED IN LOWEST POSITION, BED RAILS UP X2, HEAD OF BED IS UP>30 DEGREES FOR SAFETY PRECAUTIONS. BEDSIDE TABLE WITHIN REACH, CALL LIGHT WITHIN REACH. DISCUSSED POC WITH PATIENT AND INSTRUCTED PATIENT TO CALL PRN; PATIENT VERBALIZED UNDERSTANDING. WILL CONTINUE TO MONITOR Q1H AND PRN. PATIENT KNOW HE IS NPO AT MIDNIGHT FOR PROCEDURE IN THE MORNING. SON AT BEDSIDE. [facility] FAM[facility] [employer] NOTED.
[2019-05-21] MEDS: ATORVASTATIN 20 MG TAB PO SCH (21:14)
--- NOTE | 2019-05-22 00:24 | NUR ---
CALLED RADIOLOGY TO FOLLOW UP ON RAYMOND AMBROCIO COMMUNICATION ORDER TO SCHEDULE HD CHAIR TIME ON 05/22/19. PRESSURE SEALER AND TESTER STATED THAT TO CALL DURING DAY SHIFT TO PLACE THE ORDER. WILL ENDORSE TO DAY SHIFT NURSE.
[2019-05-22] MEDS: InsuLIN REG 1unit/0.01ml Soln (100units/ml) SC SCH ×6 (02:41→21:56)
[2019-05-22] MEDS: ACCU-CHEK COMFORT CURVE STRIP VI SCH ×6 (02:42→21:55)
[2019-05-22 05:16] VITALS: BP 115/72
[2019-05-22] MEDS ORDERED: SODIUM CHL 0.9% 1000 ML BAG XX ONE (07:00)
[2019-05-22 07:23] LABS: Calcium 7.3 mg/dL (8.5-10.1); Potassium 4.1 mmol/L (3.5-5.1)
[2019-05-22 07:26] LABS: Basophils # (auto) 0.1 uL; Eosinophils # (auto) 0.2 uL; Eosinophils % (auto) 2.3 % (0.0-7.0); Hemoglobin 8.2 g/dL (13.5-17.5); Lymphocytes % (auto) 13.7 % (10.0-50.0); Neutrophils # (auto) 7.8 uL
[2019-05-22 07:28] LABS: Basophils % (auto) 0.8 % (0.0-2.0); Hematocrit 24.3 % (41.0-53.0); Lymphocytes # (auto) 1.5 uL; Mean Corpuscular Hemoglobin 29.2 pg (28.0-32.0); Mean Corpuscular Hgb Conc. 33.8 g/dL (32.0-36.0); Mean Corpuscular Volume 86.4 fL (80.0-100.0); Monocytes # (auto) 1.1 uL; Monocytes % (auto) 9.9 % (0.0-12.0); Neutrophils % (auto) 73.3 % (37.0-80.0); Nucleated Red Blood Cells % 0.2 %; Platelet Count (auto) 299 10^3/uL (140-450); Red Blood Cells 2.82 10^6/uL (4.5-5.90); Red Cell Distribution Width 14.1 % (11.8-14.3); White Blood Cell 10.7 10^3/uL (4.4-10.8)
--- NOTE | 2019-05-22 08:00 | NUR ---
Opening Shift Note Assumed care of patient, awake and alert. No S/S of distress/SOB or pain. Instructed on POC and to call for assist PRN, will continue to monitor for changes Q1hr and PRN.
[2019-05-22 08:08] VITALS: BP 108/70
[2019-05-22] MEDS: Glucerna Carbsteady SHAKE Vanilla 8oz PO SCH ×3 (09:17→17:52)
[2019-05-22] MEDS: HEPARIN SODIUM (PORCINE) 5000 UNITS/ML 1ML VIAL SC SCH ×2 (09:19→21:58)
[2019-05-22] MEDS: FERROUS SULFATE 325 MG TAB PO SCH ×2 (09:21→17:52)
[2019-05-22] MEDS: SODIUM BICARBONATE 650 MG TAB PO SCH ×2 (09:21→21:56)
[2019-05-22] MEDS: GABAPENTIN 300 MG CAP PO SCH (09:21)
[2019-05-22] MEDS: SEVELAMER 800 MG TAB PO SCH ×3 (09:21→17:52)
[2019-05-22] MEDS: PANCREATIC ENZYMES 4200 UNIT CAP PO SCH ×3 (09:21→17:52)
[2019-05-22] MEDS: amLODIPine BESYLATE 5 MG TAB PO SCH (09:22)
[2019-05-22] MEDS: CARVEDILOL 12.5 MG TAB PO SCH ×2 (09:23→21:58)
[2019-05-22] MEDS: CALCIUM ACETATE 667 MG CAP PO SCH ×3 (09:23→17:52)
[2019-05-22] MEDS: PANTOPRAZOLE 40 MG TAB PO SCH (09:24)
[2019-05-22] MEDS: EPOETIN ALFA 10,000 UNIT/1 ML VIAL IV SCH (09:24)
--- NOTE | 2019-05-22 11:41 | NUR ---
HD CATH TIME DR. BAJWA ASKED ABOUT THE TIME OF THE HD CATH PLACEMENT AND SAID TO CALL DR. ORTIZ. DR. ORTIZ SAID HE DIDN'T HAVE A TIME BUT HE WAS TOLD IT WOULD BE IN THE AFTERNOON. THIS NURSE CALLED THE HORSE RACING ANALYST AND THEY SAID THERE WAS A CASE BEFORE HIM AND THAT IT WOULD BE AROUND [phone]. THIS NURSE RELAYED THIS INFORMATION TO DR. BAJWA.
[2019-05-22 11:56] VITALS: BP 92/63
[2019-05-22] MEDS ORDERED: LIDOCAINE 2%HCL (LOCAL ANESTH.) INJ 20ML MDV ONE ×2 (15:54→16:25)
[2019-05-22] MEDS ORDERED: HEPARIN SODIUM (PORCINE) 5000 UNITS/ML 1ML VIAL ONE (15:55)
[2019-05-22] MEDS ORDERED: fentaNYL CITRATE 100 MCG/2 ML VL ONE (16:01)
[2019-05-22] MEDS ORDERED: MIDAZOLAM HCL 1MG/1ML-2 ML VIAL ONE (16:02)
[2019-05-22] MEDS ORDERED: ceFAZolin 1GM/50ML 50 ML IV ONE (16:18)
--- NOTE | 2019-05-22 16:47 | NUR ---
assessment Per ss consult Dialysis chair time. Patient agrees to dialysis chair time. MD order has been sent to [facility]. Waiting on chair time now. Addendum: 05/22/19 at 1649 by Mary Dickerson Amended: Links added.
--- NOTE | 2019-05-22 17:23 | NUR ---
Pt has a confirmed chair time of , , and Monday at 1445pm with [facility]. Contact information for [facility] is [phone]
--- NOTE | 2019-05-22 17:50 | NUR ---
Returned to floor/HD cath Patient returned to floor Right IJ tunnelling cath in place. Dressing is clean, dry, and intact. Patient is alert and oriented. Blood sugar checked and is 100. Patient received dinner tray.
[2019-05-22] MEDS: HYDROcodone-ACET 5/325MG TAB PO PRN (19:29)
--- NOTE | 2019-05-22 19:30 | NUR ---
Opening Shift Note Assumed care of patient from day shift from day shift RN Kimberly. Pt awake and alert and oriented x4. Pt c/o pain 10/ from dialysis cath site. Administered Salters. Toney catheter intact, patent, draining to gravity. Safety maintained with bed rails upx2, locked and in lowest position with call sanders within reach. Instructed on POC and to call for assist PRN, will continue to monitor for changes Q1hr and PRN.
[2019-05-22] MEDS: ATORVASTATIN 20 MG TAB PO SCH (21:57)
[2019-05-22 22:00] VITALS: BP 87/55
[2019-05-23] MEDS: InsuLIN REG 1unit/0.01ml Soln (100units/ml) SC SCH ×7 (04:06→23:59)
[2019-05-23] MEDS: ACCU-CHEK COMFORT CURVE STRIP VI SCH ×7 (04:06→23:59)
[2019-05-23 05:00] VITALS: BP 94/61
[2019-05-23 06:48] LABS: Basophils # (auto) 0.1 uL; Basophils % (auto) 0.8 % (0.0-2.0); Eosinophils # (auto) 0.2 uL; Eosinophils % (auto) 2.2 % (0.0-7.0); Hematocrit 26.7 % (41.0-53.0); Hemoglobin 8.8 g/dL (13.5-17.5); Lymphocytes # (auto) 1.5 uL; Lymphocytes % (auto) 15.7 % (10.0-50.0); Mean Corpuscular Hemoglobin 28.8 pg (28.0-32.0); Mean Corpuscular Hgb Conc. 32.9 g/dL (32.0-36.0); Mean Corpuscular Volume 87.6 fL (80.0-100.0); Monocytes # (auto) 0.9 uL; Monocytes % (auto) 9.6 % (0.0-12.0); Neutrophils # (auto) 6.9 uL; Neutrophils % (auto) 71.7 % (37.0-80.0); Nucleated Red Blood Cells % 0.6 %; Platelet Count (auto) 298 10^3/uL (140-450); Red Blood Cells 3.05 10^6/uL (4.5-5.90); Red Cell Distribution Width 14.6 % (11.8-14.3); White Blood Cell 9.6 10^3/uL (4.4-10.8)
[2019-05-23 06:56] LABS: Potassium 4.8 mmol/L (3.5-5.1)
[2019-05-23 07:11] LABS: BUN/Creatinine Ratio 15.6
[2019-05-23] MEDS: CALCIUM ACETATE 667 MG CAP PO SCH ×3 (08:00→17:16)
[2019-05-23] MEDS: PANCREATIC ENZYMES 4200 UNIT CAP PO SCH ×3 (08:00→17:16)
[2019-05-23] MEDS: SEVELAMER 800 MG TAB PO SCH ×3 (08:00→17:16)
[2019-05-23] MEDS: Glucerna Carbsteady SHAKE Vanilla 8oz PO SCH ×3 (08:00→17:16)
--- NOTE | 2019-05-23 08:25 | NUR ---
HD HD STAFF HERE TO START DIALYSIS. REVIEWED ORDERS AND MEDS. PROVIDED SUPPLIES FOR THEM.
[2019-05-23 09:00] VITALS: BP 96/57
[2019-05-23] MEDS: amLODIPine BESYLATE 5 MG TAB PO SCH (10:00)
[2019-05-23] MEDS: CARVEDILOL 12.5 MG TAB PO SCH ×2 (10:00→21:50)
[2019-05-23] MEDS: FERROUS SULFATE 325 MG TAB PO SCH ×2 (12:31→17:16)
[2019-05-23] MEDS: GABAPENTIN 300 MG CAP PO SCH (12:31)
[2019-05-23] MEDS: SODIUM BICARBONATE 650 MG TAB PO SCH ×2 (12:31→21:54)
[2019-05-23] MEDS: PANTOPRAZOLE 40 MG TAB PO SCH (12:32)
[2019-05-23] MEDS: HEPARIN SODIUM (PORCINE) 5000 UNITS/ML 1ML VIAL SC SCH ×2 (12:35→21:55)
[2019-05-23 13:00] VITALS: BP 125/73
[2019-05-23] MEDS ORDERED: EPOE10003 IV (15:36)
[2019-05-23] MEDS ORDERED: CALC667C5 PO (15:36)
[2019-05-23] MEDS ORDERED: ATOR20TA50 PO (15:36)
[2019-05-23] MEDS ORDERED: INSUINJ37 SC (15:36)
[2019-05-23] MEDS ORDERED: PANT40T PO (15:36)
[2019-05-23] MEDS ORDERED: SEVE800T PO (15:36)
[2019-05-23] MEDS ORDERED: SODI650T PO (15:36)
[2019-05-23 17:00] VITALS: BP 126/85
--- NOTE | 2019-05-23 19:15 | NUR ---
Opening Shift Note Assumed care of patient from day shift from day shift RN Kimberly. Pt awake and alert and oriented x4. No s/s distress. Toney catheter intact, patent, draining to gravity. Safety maintained with bed rails upx2, locked and in lowest position with call sanders within reach. Instructed on POC and to call for assist PRN, will continue to monitor for changes Q1hr and PRN.
[2019-05-23] MEDS: ATORVASTATIN 20 MG TAB PO SCH (21:54)
[2019-05-23 22:00] VITALS: BP 115/63
[2019-05-24] MEDS: InsuLIN REG 1unit/0.01ml Soln (100units/ml) SC SCH ×5 (03:52→20:43)
[2019-05-24] MEDS: ACCU-CHEK COMFORT CURVE STRIP VI SCH ×5 (03:52→20:43)
[2019-05-24 05:00] VITALS: BP 124/69
--- NOTE | 2019-05-24 07:20 | NUR ---
Opening Shift Note Assumed care of patient, awake and alert. No S/S of distress/SOB or pain. Instructed on POC and to calf or assist PRN, will continue to monitor for changes Q1hr and PRN. Bed locked in lowest position with two side rails up and call light in reach.
[2019-05-24 08:00] VITALS: BP 101/53
[2019-05-24] MEDS: FERROUS SULFATE 325 MG TAB PO SCH ×2 (08:00→17:44)
[2019-05-24] MEDS: Glucerna Carbsteady SHAKE Vanilla 8oz PO SCH ×2 (08:00→12:19)
[2019-05-24] MEDS: PANCREATIC ENZYMES 4200 UNIT CAP PO SCH ×3 (08:01→17:44)
[2019-05-24] MEDS: SEVELAMER 800 MG TAB PO SCH ×3 (08:01→17:44)
[2019-05-24] MEDS: CALCIUM ACETATE 667 MG CAP PO SCH ×3 (08:01→17:44)
[2019-05-24 08:17] VITALS: BP 101/53
[2019-05-24] MEDS: EPOETIN ALFA 10,000 UNIT/1 ML VIAL IV SCH (09:39)
[2019-05-24] MEDS: CARVEDILOL 12.5 MG TAB PO SCH ×2 (09:40→23:07)
[2019-05-24] MEDS: SODIUM BICARBONATE 650 MG TAB PO SCH ×2 (09:40→23:06)
[2019-05-24] MEDS: GABAPENTIN 300 MG CAP PO SCH (09:40)
[2019-05-24] MEDS: amLODIPine BESYLATE 5 MG TAB PO SCH (09:40)
[2019-05-24] MEDS: PANTOPRAZOLE 40 MG TAB PO SCH (09:40)
[2019-05-24] MEDS: HEPARIN SODIUM (PORCINE) 5000 UNITS/ML 1ML VIAL SC SCH ×2 (09:42→23:09)
--- NOTE | 2019-05-24 11:48 | NUR ---
I faxed SNF order/PT notes to [facility].
--- NOTE | 2019-05-24 12:43 | NUR ---
ROUNDS PATIENT EATING LUNCH WITH FAMILY.
[2019-05-24 13:00] VITALS: BP 137/75
--- NOTE | 2019-05-24 14:51 | NUR ---
I called documentation nurse [facility] Dredge Pumper Arcelia Anders [phone] and left message asking for authorization for [facility] as well as transportation, awaiting return call.
--- NOTE | 2019-05-24 14:54 | NUR ---
Nutrition Follow-up Notes Wt.: 65.2 kg Pt was sleeping with no family by bedside. per records pt s/p HD catheter placed and now on HD. pt with no distress noted per nursing. pt is currently on CCHO 60 gm/meal diet with adequate PO of 75% x 4 per RN doc along with Glucerna 1 carton tid. pt had HD yesterday Est. Needs IBW [id number] kcal (30-33kcal/kgBW), 86-100 gms pro (1.2-1.4 gms/kgBW r/t HD severe hypoalb). Will continue to monitor pertinent labs and reassess nutrient need prn. Reassessed as pt now on HD Labs: BUN 98 H, CREAT 6.27 H, GLU 175 H, CA 8.0 L. Skin: John Paul scale 16, mod risk no open wounds per RN doc GI: Pt had 1 BM yesterday per billboard poster. PES: Altered nutrition related lab values r/t acute/chronic medical condition aeb elev RFT A1C, hyperglycemia, hypocalcemia, hyperphosphatemia, severe hypoalb Increased nutrient needs r/t current chronic medical condition aeb pt`s with chronic pancreatitis reporting wt loss and poor PO Will continue to monitor PO intake, skin status, pertinent labs and weight trend. F/u in 3-5 days. Rec.: 1.) consider CCHO 60 gm renal std diet as pt on HD now. 2) consider nephrocarb steady 1 carton bid instead of Glucerna. 3) refer to CDE on DC. 4) consider Megace if appetite is low. 5) continue assistance with meal. 6) consider prostat 1 packet bid.. 7) continue current plan of care
--- NOTE | 2019-05-24 15:42 | NUR ---
I called 1st pressman on web press [facility] Physical Design Engineer Arcelia Anders [phone], left a second message (no return call) regarding needing authorization for [facility] as well as transportation-awaiting return call.
[2019-05-24 16:33] VITALS: BP 130/71
--- NOTE | 2019-05-24 17:29 | NUR ---
Per SS consult for SNF and chair time. Contacted [facility] Ph: ) Fax: ) faxed medical records. Per Kim Pt has been accepted to room 67[address] accepting MD Dr. Watts. Per Kim to contact Coretta from [facility] Ph: ) to set up transportation upon d/c. Informed Surgical Instrument Mechanic Blank for authorization. Contacted [facility] Ph: ) faxed medical records. Per Leonor from [facility] Pt chair time will be Tuesdays, , and Saturdays at 13:30 at location [address] [address] [facility] [address]. Per Leonor from [facility] for pt to arrive at 13:00 on Monday to documents. Informed RADHA Pozo Addendum: 05/24/19 at 1737 by GAYATRI SURESH Amended: Links added.
[2019-05-24 22:00] VITALS: BP 143/78
--- NOTE | 2019-05-24 22:12 | NUR ---
Spoke with Coretta to set up transfer of pt to [facility] per SS notes and Coretta states that she does not set up transfer for [facility] pts and that we need to set up some other transportation via SS.
[2019-05-24] MEDS: Nepro With Carbsteady ButterPecan 8oz Carton PO SCH (23:08)
[2019-05-24] MEDS: Pro-Stat SF 30ml Vanilla PO SCH (23:08)
[2019-05-24] MEDS: ATORVASTATIN 20 MG TAB PO SCH (23:08)
[2019-05-25] MEDS: ACCU-CHEK COMFORT CURVE STRIP VI SCH ×5 (00:39→16:00)
[2019-05-25] MEDS: InsuLIN REG 1unit/0.01ml Soln (100units/ml) SC SCH ×6 (00:39→20:00)
[2019-05-25 05:00] VITALS: BP 130/68
[2019-05-25 09:00] VITALS: BP 117/66
[2019-05-25] MEDS: FERROUS SULFATE 325 MG TAB PO SCH ×2 (09:05→18:32)
[2019-05-25] MEDS: CALCIUM ACETATE 667 MG CAP PO SCH ×3 (09:05→18:32)
[2019-05-25] MEDS: SEVELAMER 800 MG TAB PO SCH ×3 (09:05→18:32)
[2019-05-25] MEDS: PANCREATIC ENZYMES 4200 UNIT CAP PO SCH ×3 (09:06→18:00)
[2019-05-25] MEDS: amLODIPine BESYLATE 5 MG TAB PO SCH (10:10)
[2019-05-25] MEDS: GABAPENTIN 300 MG CAP PO SCH (10:11)
[2019-05-25] MEDS: CARVEDILOL 12.5 MG TAB PO SCH (10:11)
[2019-05-25] MEDS: SODIUM BICARBONATE 650 MG TAB PO SCH (10:12)
[2019-05-25] MEDS: HYDROcodone-ACET 5/325MG TAB PO PRN ×2 (10:12→16:53)
[2019-05-25] MEDS: Nepro With Carbsteady ButterPecan 8oz Carton PO SCH (10:13)
[2019-05-25] MEDS: Pro-Stat SF 30ml Vanilla PO SCH (10:13)
[2019-05-25] MEDS: PANTOPRAZOLE 40 MG TAB PO SCH (10:14)
[2019-05-25 13:00] VITALS: BP 125/74
--- NOTE | 2019-05-25 14:00 | NUR ---
I placed a call to [facility] exhibitions curator block and case maker Arcelia Anders [phone] and left message asking for authorization for SNF as well as for transportation-awaiting return call.
[2019-05-25] MEDS: HEPARIN SODIUM (PORCINE) 5000 UNITS/ML 1ML VIAL SC SCH (15:02)
--- NOTE | 2019-05-25 15:08 | NUR ---
I called [facility] Junior Network Engineer Arcelia Anders [phone] a second time (no return call from the first time)-left another message asking for authorization for SNF as well as for transportation-awaiting return call.
--- NOTE | 2019-05-25 17:23 | NUR ---
I called [facility] and placed them on will-call pending transfer to [facility] ([facility] auth number for [facility] is [id number]----[facility] auth number for SNF is [id number])-I relayed this information to nurse Gonzalez.
[2019-05-25 17:30] VITALS: BP 137/81
[2019-05-25] MEDS ORDERED: HEPARIN SODIUM (PORCINE) 5000 UNITS/ML 1ML VIAL IV ONE ×3 (17:45→18:45)
--- NOTE | 2019-05-25 18:30 | NUR ---
[facility] called at for transportation to [facility] dialysis. ETA scheduled at 2029.
--- NOTE | 2019-05-25 20:45 | NUR ---
[facility] ARRIVED [facility] arrived to [facility] to [facility].
--- NOTE | 2019-05-25 21:00 | NUR ---
[facility] transport The patient has been transported off the unit.
--- NOTE | 2019-05-25 21:10 | NUR ---
REPORT GIVEN Report was given to Henny Hernandez RN [facility].
== END 2019-05-25 21:00 | DRG 469 ==
LOC: ER 01:25 → TELE 05:27 → TELE-WESTW 06:30
PROVIDERS: ADMIT Nurse Practitioner; ATTEND Internal Medicine
PROC: 0JH63XZ Insertion of Tunneled Vascular Access Device into Chest Subcutaneous Tissue and Fascia, Percutaneous Approach (ICD-10-PCS; principal; 2019-05-22)
PROC: 02H633Z Insertion of Infusion Device into Right Atrium, Percutaneous Approach (ICD-10-PCS; 2019-05-22)
PROC: B2141ZZ Fluoroscopy of Right Heart using Low Osmolar Contrast (ICD-10-PCS; 2019-05-22)
PROC: B244ZZZ Ultrasonography of Right Heart (ICD-10-PCS; 2019-05-22)
PROC: 5A1D70Z Performance of Urinary Filtration, Intermittent, Less than 6 Hours Per Day (ICD-10-PCS; 2019-05-23)
PROC: 5A1D70Z Performance of Urinary Filtration, Intermittent, Less than 6 Hours Per Day (ICD-10-PCS; 2019-05-25)
DX: N17.9 Acute kidney failure, unspecified (principal); E43 Unspecified severe protein-calorie malnutrition; E11.10 Type 2 diabetes mellitus with ketoacidosis without coma; E87.8 Other disorders of electrolyte and fluid balance, not elsewhere classified; K86.1 Other chronic pancreatitis; E11.22 Type 2 diabetes mellitus with diabetic chronic kidney disease; I12.0 Hypertensive chronic kidney disease with stage 5 chronic kidney disease or end stage renal disease; N18.6 End stage renal disease; E78.5 Hyperlipidemia, unspecified; D63.1 Anemia in chronic kidney disease; K70.30 Alcoholic cirrhosis of liver without ascites; E78.00 Pure hypercholesterolemia, unspecified; Z83.3 Family history of diabetes mellitus; Z99.2 Dependence on renal dialysis; Z91.19 Patient's noncompliance with other medical treatment and regimen; Z68.22 Body mass index [BMI] 22.0-22.9, adult; Z79.899 Other long term (current) drug therapy
CPT/HCPCS: 36415; 36600; 71045; 74176; 76000; 76705; 76942; 80048; 80053; 80061; 80307; 80320; 81001; 82010; 82140; 82150; 82270; 82378; 82570; 82805; 82962; 83036; 83540; 83550; 83690; 83735; 83880; 83935; 84100; 84154; 84156; 84300; 84484; 85007; 85025; 85027; 85610; 85730; 86703; 86704; 86706; 86708; 86803; 87340; 90935; 93005; 93306; 94761; 96374; 96375; 99152; G0378; J0690; J0885; J1642; J1815; J2250

== ENCOUNTER 2019-09-01 07:01 | Inpatient (IN) | payer MEDICAID ==
[~2019-09-01] VITALS: Ht 170.2 cm; Wt 60.4 kg
[~2019-09-01 07:01] MED LIST changes: -AMLO5TAB13 PO; +AMLO5TAB15 PO; +ATOR20TA50 PO; +CALC667C5 PO; -CLIN1CAP4 PO; +EPOE10003 IV; -FAMO-12 PO; +INSUINJ37 SC; +PANT40T PO; -SACC250C PO; +SEVE800T PO; +SODI650T PO
[2019-09-01 07:53] LABS: Basophils # (auto) 0.1 uL; Basophils % (auto) 0.8 % (0.0-2.0); Eosinophils # (auto) 0.1 uL; Eosinophils % (auto) 0.4 % (0.0-7.0); Neutrophils % (auto) 83.8 % (37.0-80.0)
[2019-09-01 07:54] LABS: Hematocrit 40.8 % (41.0-53.0); Lymphocytes # (auto) 1.1 uL; Lymphocytes % (auto) 7.6 % (10.0-50.0); Mean Corpuscular Hemoglobin 28.9 pg (28.0-32.0); Mean Corpuscular Hgb Conc. 31.8 g/dL (32.0-36.0); Mean Corpuscular Volume 90.7 fL (80.0-100.0); Monocytes # (auto) 1.1 uL; Monocytes % (auto) 7.4 % (0.0-12.0); Neutrophils # (auto) 12.1 uL; Nucleated Red Blood Cells % 0.1 %; Platelet Count (auto) 522 10^3/uL (140-450); Red Cell Distribution Width 14.5 % (11.8-14.3); White Blood Cell 14.4 10^3/uL (4.4-10.8)
[2019-09-01 08:12] LABS: Albumin 2.1 g/dL (3.4-5.0); Potassium 4.5 mmol/L (3.5-5.1)
[2019-09-01 08:15] LABS: BUN/Creatinine Ratio 6.5; Bilirubin, Total 0.3 mg/dL (0.2-1.0)
[2019-09-01] MEDS ORDERED: LABETALOL HCL 5 MG/ML ML 20ML VIAL IV ONE (09:00)
[2019-09-01] MEDS ORDERED: hydrALAZINE HCL 20 MG/ML VL IV ONE (09:15)
[2019-09-01] MEDS ORDERED: SODIUM CHLORIDE 0.9% 1,000 ML IV ONE ×2 (09:50→12:00)
[2019-09-01 10:32] LABS: Magnesium 1.7 mg/dL (1.6-2.6)
[2019-09-01 11:20] LABS: Urine Bacteria NONE SEEN /hpf (None Seen); Urine Blood 1+ /uL (Negative); Urine WBC 3182 /hpf (0 - 3); Urine WBC Clumps PRESENT /hpf (None Seen)
[2019-09-01] MEDS ORDERED: cefTRIAXone 1GM/50ML D5W 50 ML IV ONE (11:45)
[2019-09-01] MEDS ORDERED: NITROGLYCERIN 0.4 MG SL TAB SL PRN (12:15)
[2019-09-01] MEDS ORDERED: ONDANSETRON HCL 4 MG/2 ML VIAL IV PRN (12:15)
[2019-09-01] MEDS ORDERED: MORPHINE SULF INJ 2 MG/ML SYRINGE 1ML IV PRN ×2 (12:15)
[2019-09-01] MEDS ORDERED: HYDROcodone-ACET 5/325MG TAB PO PRN (12:15)
[2019-09-01] MEDS ORDERED: ACETAMINOPHEN 500 MG TAB PO PRN (12:15)
[2019-09-01] MEDS ORDERED: DEXTROSE (50%) 50ML SYRG IV PRN (12:15)
[2019-09-01] MEDS ORDERED: amLODIPine BESYLATE 5 MG TAB PO ONE (12:30)
[2019-09-01] MEDS ORDERED: CARVEDILOL 12.5 MG TAB PO ONE (12:30)
[2019-09-01] MEDS ORDERED: PANTOPRAZOLE 40 MG TAB PO ONE (12:30)
--- NOTE | 2019-09-01 13:45 | NUR ---
Telemetry admit from ER ARLENEDarlingKIMBERLY admitted to Telemetry unit after SBAR received. Patient oriented to ERIC BRADFORD, primary RN, unit, room, bed, and unit policies regarding patient care and visiting hours. Patient now on continuous telemetry monitoring. Patient weighed by bedscale and encouraged to call if they need something. All questions and concerns addressed, patient verbalized understanding.
--- NOTE | 2019-09-01 14:00 | NUR ---
RG CATHETER REMOVED PER DOCTOR ORDERS. WILL MONITOR FOR OUTPUT.
[2019-09-01] MEDS: GABAPENTIN 300 MG CAP PO SCH ×2 (14:19→22:10)
[2019-09-01] MEDS: CALCIUM ACETATE 667 MG CAP PO SCH (17:22)
[2019-09-01] MEDS ORDERED: TAMSULOSIN HYDROCHLORIDE 0.4 MG CAP PO SCH (18:00)
[2019-09-01] MEDS: InsuLIN REG 1unit/0.01ml Soln (100units/ml) SC SCH ×2 (18:04→22:18)
[2019-09-01] MEDS: ACCU-CHEK COMFORT CURVE STRIP VI SCH ×2 (18:04→22:11)
--- NOTE | 2019-09-01 19:10 | NUR ---
NO URINE OUTPUT REPORTED BY PATIENT. ENCOURAGED PO FLUIDS AND NOTIFIED NIGHT NURSE.
--- NOTE | 2019-09-01 19:30 | NUR ---
Opening Shift Note Report received from day shift RN. Assumed care of patient. Patient sitting in bed awake and alert x4. No S/S of distress/SOB noted and denies pain at this time. Per patient he typically has very little urine output because he receives dialysis. Instructed patient to report if feeling any bladder discomfort or has the urge to urinate. Denies any urge to urinate or any discomfort at this time. Bed locked and left in the lowest position. Call light left within reach. Instructed on POC and to call for assist PRN, will continue to monitor for changes Q1hr and PRN.
[2019-09-01] MEDS: CARVEDILOL 12.5 MG TAB PO SCH (22:00)
[2019-09-01] MEDS ORDERED: ATORVASTATIN 20 MG TAB PO SCH (22:00)
[2019-09-01 22:01] VITALS: BP 114/76
[2019-09-02 05:03] VITALS: BP 123/75
[2019-09-02 05:33] LABS: Basophils # (auto) 0.1 uL; Basophils % (auto) 0.8 % (0.0-2.0); Eosinophils # (auto) 0.2 uL; Eosinophils % (auto) 2.3 % (0.0-7.0); Hematocrit 35.2 % (41.0-53.0); Hemoglobin 11.3 g/dL (13.5-17.5); Lymphocytes # (auto) 1.8 uL; Lymphocytes % (auto) 20.7 % (10.0-50.0); Mean Corpuscular Hemoglobin 28.8 pg (28.0-32.0); Mean Corpuscular Hgb Conc. 32.1 g/dL (32.0-36.0); Mean Corpuscular Volume 89.5 fL (80.0-100.0); Monocytes # (auto) 0.7 uL; Monocytes % (auto) 8.3 % (0.0-12.0); Neutrophils # (auto) 5.9 uL; Neutrophils % (auto) 67.9 % (37.0-80.0); Nucleated Red Blood Cells % 0.1 %; Platelet Count (auto) 472 10^3/uL (140-450); Red Blood Cells 3.93 10^6/uL (4.5-5.90); Red Cell Distribution Width 14.7 % (11.8-14.3); White Blood Cell 8.6 10^3/uL (4.4-10.8)
[2019-09-02 05:46] LABS: BUN/Creatinine Ratio 7.5; Calcium 7.7 mg/dL (8.5-10.1); Magnesium 2.1 mg/dL (1.6-2.6); Phosphorus 2.4 mg/dL (2.5-4.90); Potassium 3.9 mmol/L (3.5-5.1)
[2019-09-02 05:52] LABS: % Iron Saturation 23.2 % (20-55)
[2019-09-02] MEDS: GABAPENTIN 300 MG CAP PO SCH (06:02)
[2019-09-02] MEDS: ACCU-CHEK COMFORT CURVE STRIP VI SCH ×2 (06:22→11:33)
[2019-09-02] MEDS: InsuLIN REG 1unit/0.01ml Soln (100units/ml) SC SCH ×2 (06:22→11:34)
--- NOTE | 2019-09-02 07:30 | NUR ---
Opening Shift Note RECEIVED REPORT FROM RESOURCE RN. Assumed care of patient, awake and alert. No S/S of distress/SOB or pain. BED IN LOWEST, LOCKED POSITION WITH SIDERAILS UP x2 AND CALL LIGHT WITHIN REACH. Instructed on POC and to call for assist PRN, will continue to monitor for changes Q1hr and PRN.
[2019-09-02] MEDS: CALCIUM ACETATE 667 MG CAP PO SCH ×2 (08:06→11:57)
[2019-09-02 08:58] VITALS: BP 126/74
[2019-09-02] MEDS ORDERED: cefTRIAXone 1GM/50ML D5W 50 ML IV SCH (09:00)
[2019-09-02] MEDS ORDERED: INSULIN LANTUS (GLARGINE) 1 /0.01ml (100units/ml) SC SCH (10:00)
[2019-09-02] MEDS ORDERED: PANTOPRAZOLE 40 MG TAB PO SCH (10:00)
[2019-09-02] MEDS ORDERED: GABAPENTIN 300 MG CAP PO SCH (10:00)
[2019-09-02] MEDS ORDERED: amLODIPine BESYLATE 5 MG TAB PO SCH (10:00)
[2019-09-02] MEDS: CARVEDILOL 12.5 MG TAB PO SCH (10:18)
[2019-09-02] MEDS ORDERED: CIPR-273 PO (12:01)
[2019-09-02] MEDS ORDERED: TAM04C PO (12:01)
[2019-09-02 12:38] VITALS: BP 121/78
[2019-09-02 13:12] VITALS: BP 121/78
== END 2019-09-02 14:43 | disposition home or self-care (01) | DRG 720 ==
LOC: ER 07:01 → OVERFLOW 07:02 → WEST WING 13:44
PROVIDERS: ADMIT Nurse Practitioner Acute Care; ATTEND Internal Medicine
DX: A41.9 Sepsis, unspecified organism (principal); K85.90 Acute pancreatitis without necrosis or infection, unspecified; E11.21 Type 2 diabetes mellitus with diabetic nephropathy; E11.40 Type 2 diabetes mellitus with diabetic neuropathy, unspecified; E44.0 Moderate protein-calorie malnutrition; T83.511A Infection and inflammatory reaction due to indwelling urethral catheter, initial encounter; I12.0 Hypertensive chronic kidney disease with stage 5 chronic kidney disease or end stage renal disease; K86.1 Other chronic pancreatitis; N18.6 End stage renal disease; Y84.6 Urinary catheterization as the cause of abnormal reaction of the patient, or of later complication, without mention of misadventure at the time of the procedure; E11.65 Type 2 diabetes mellitus with hyperglycemia; E78.5 Hyperlipidemia, unspecified; D63.1 Anemia in chronic kidney disease; K21.9 Gastro-esophageal reflux disease without esophagitis; E11.22 Type 2 diabetes mellitus with diabetic chronic kidney disease; K70.30 Alcoholic cirrhosis of liver without ascites; N39.0 Urinary tract infection, site not specified; Z79.4 Long term (current) use of insulin; Z99.2 Dependence on renal dialysis; Z83.3 Family history of diabetes mellitus; Z79.899 Other long term (current) drug therapy; Z68.20 Body mass index [BMI] 20.0-20.9, adult
CPT/HCPCS: 36415; 71045; 80048; 80053; 80061; 81001; 82728; 82962; 83036; 83540; 83550; 83690; 83735; 84100; 84443; 85025; 87086; 87088; 87186; 93005; 94761; 96361; 96365; 97110; 97116; 97530; G0378; J0696; J1815

== ENCOUNTER 2020-07-09 11:33 | Inpatient (IN) | payer MEDICARE, MEDICAID ==
[~2020-07-09] VITALS: Ht 175.3 cm; Wt 65.8 kg
[~2020-07-09 11:33] MED LIST changes: +CIPR-273 PO; -SEVE800T PO; -SODI650T PO; +TAM04C PO
[2020-07-09] MEDS ORDERED: SODIUM CHLORIDE 0.9% 1,000 ML IV ONE (11:42)
[2020-07-09 15:05] LABS: Basophils # (auto) 0.1 10 ^3/uL (0-0.2); Eosinophils # (auto) 0.2 10 ^3/uL (0-0.8); Eosinophils % (auto) 2.1 % (0.0-7.0); Hematocrit 32.8 % (41.0-53.0); Hemoglobin 10.6 g/dL (13.5-17.5); Lymphocytes # (auto) 1.3 10 ^3/uL (0.4-5.4); Mean Corpuscular Hgb Conc. 32.3 g/dL (32.0-36.0); Mean Corpuscular Volume 89.8 fL (80.0-100.0); Monocytes # (auto) 0.5 10 ^3/uL (0-1.3); Monocytes % (auto) 7.1 % (0.0-12.0); Neutrophils # (auto) 5.4 10 ^3/uL (1.6-8.6); Neutrophils % (auto) 72.8 % (37.0-80.0); Platelet Count (auto) 320 10^3/uL (140-450); Red Blood Cells 3.65 10^6/uL (4.5-5.90); Red Cell Distribution Width 15.1 % (11.8-14.3); White Blood Cell 7.5 10^3/uL (4.4-10.8)
[2020-07-09 15:21] LABS: INR 1.07 (0.9-1.15); Partial Thromboplastin Time 28.8 sec (23.0-31.2)
[2020-07-09 15:22] LABS: Albumin 1.5 g/dL (3.4-5.0); Anion Gap 3 (5-15); Blood Urea Nitrogen 19 mg/dL (7-18); Calcium 7.3 mg/dL (8.5-10.1); Carbon Dioxide 32 mmol/L (21-32); Chloride 106 mmol/L (98-107); Glucose 175 mg/dL (74-106); Potassium 3.4 mmol/L (3.5-5.1); Sodium 141 mmol/L (136-145)
[2020-07-09 15:30] LABS: Alanine Aminotransferase 43 U/L (16-61); Alkaline Phosphatase 157 U/L (45-117); Aspartate Aminotransferase 27 U/L (15-37); BUN/Creatinine Ratio 5.5; Bilirubin, Total 0.2 mg/dL (0.2-1.0); GFR African American 24 mL/min; GFR Non-African American 20 mL/min
[2020-07-09] MEDS ORDERED: POTASSIUM EFFERVESENT TAB 25 MEQ PO ONE (17:00)
[2020-07-09] MEDS ORDERED: ACETAMINOPHEN 500 MG TAB PO PRN (19:00)
[2020-07-09] MEDS ORDERED: DEXTROSE (50%) 50ML SYRG IV PRN (19:00)
[2020-07-09] MEDS ORDERED: hydrALAZINE HCL 20 MG/ML VL IV PRN (19:00)
[2020-07-09] MEDS ORDERED: NITROGLYCERIN 0.4 MG SL TAB SL PRN (19:00)
[2020-07-09] MEDS ORDERED: MORPHINE SULF INJ 2 MG/ML SYRINGE 1ML IV PRN (19:00)
[2020-07-09] MEDS: InsuLIN REG 1unit/0.01ml Soln (100units/ml) SC SCH ×2 (19:53→23:57)
[2020-07-09] MEDS: ACCU-CHEK COMFORT CURVE STRIP VI SCH ×2 (19:53→23:57)
--- NOTE | 2020-07-09 21:50 | NUR ---
Telemetry admit from ER KIMBERLY NUNO admitted to Telemetry unit after SBAR received. Patient oriented to Ariella Faustin, primary RN, unit, room, bed, and unit policies regarding patient care and visiting hours. Patient now on continuous telemetry monitoring, tele box # 71 and telemetry reading on arrival to unit is sinus rhythm. Patient weighed by bedscale and encouraged to call if they need something. All questions and concerns addressed, patient verbalized understanding.
[2020-07-09 22:15] VITALS: BP 176/102
[2020-07-09] MEDS: CARVEDILOL 12.5 MG TAB PO SCH (22:30)
[2020-07-09 23:04] LABS: Urine Bacteria NONE SEEN /hpf (None Seen); Urine Blood 2+ /uL (Negative); Urine Hyaline Cast MOD /lpf (0 - 2); Urine Mucus FEW (None Seen); Urine Specific Gravity 1.015 (1.001-1.035); Urine WBC 28 /hpf (0 - 3)
[2020-07-10] MEDS ORDERED: HYDR-2691 PO (01:02)
[2020-07-10] MEDS ORDERED: CALC667C PO (01:02)
[2020-07-10] MEDS ORDERED: PANC3600 OR (01:02)
[2020-07-10] MEDS ORDERED: SEVE800T8 PO (01:02)
[2020-07-10] MEDS ORDERED: AMLO10TA13 PO (01:02)
[2020-07-10] MEDS ORDERED: GABA300C10 PO (01:02)
[2020-07-10] MEDS ORDERED: LEVO250T69 PO (01:02)
[2020-07-10] MEDS: InsuLIN REG 1unit/0.01ml Soln (100units/ml) SC SCH ×5 (04:00→22:00)
[2020-07-10] MEDS: ACCU-CHEK COMFORT CURVE STRIP VI SCH ×5 (04:05→22:10)
[2020-07-10 05:00] VITALS: BP 150/96
[2020-07-10] MEDS ORDERED: SODIUM CHL 0.9% 1000 ML BAG XX ONE (07:15)
--- NOTE | 2020-07-10 07:30 | NUR ---
Opening Note Assumed pt care from NOC RN. Pt is a/ox4 with no s/s of distress or SOB. Pt is currently laying in bed with no complaints at this time. Discussed POC with pt and pending nephrology consult; pt verbalized understanding. Safety measures maintained with call light within reach, bed in lowest position and side rails up. Will continue to monitor for changes.
[2020-07-10 07:35] LABS: Basophils # (auto) 0.1 10 ^3/uL (0-0.2); Basophils % (auto) 1.2 % (0.0-2.0); Eosinophils # (auto) 0.2 10 ^3/uL (0-0.8); Eosinophils % (auto) 2.5 % (0.0-7.0); Hematocrit 31.9 % (41.0-53.0); Hemoglobin 10.5 g/dL (13.5-17.5); Lymphocytes # (auto) 1.2 10 ^3/uL (0.4-5.4); Lymphocytes % (auto) 15.5 % (10.0-50.0); Mean Corpuscular Hemoglobin 29.3 pg (28.0-32.0); Mean Corpuscular Hgb Conc. 32.8 g/dL (32.0-36.0); Mean Corpuscular Volume 89.4 fL (80.0-100.0); Monocytes # (auto) 0.6 10 ^3/uL (0-1.3); Monocytes % (auto) 7.4 % (0.0-12.0); Neutrophils # (auto) 5.9 10 ^3/uL (1.6-8.6); Neutrophils % (auto) 73.4 % (37.0-80.0); Nucleated Red Blood Cells % 0.1 %; Platelet Count (auto) 307 10^3/uL (140-450); Red Blood Cells 3.57 10^6/uL (4.5-5.90)
[2020-07-10] MEDS: CARVEDILOL 12.5 MG TAB PO SCH ×2 (07:51→17:02)
[2020-07-10] MEDS: PANTOPRAZOLE 40 MG/10 ML VIAL INJ IV SCH (08:52)
[2020-07-10] MEDS: ENOXAPARIN SOD 30 MG/0.3 ML SYRINGE SC SCH (08:52)
[2020-07-10 09:16] VITALS: BP 152/96
[2020-07-10] MEDS ORDERED: EPOETIN ALFA 10,000 UNIT/1 ML VIAL IV SCH (10:00)
--- NOTE | 2020-07-10 10:23 | NUR ---
Mild Hematuria Noted Mild red tinged blood noted in tubing of pt's martin catheter. Pt denies any pain and is currently asymptomatic. Will notify MD upon rounding. Will continue to monitor.
--- NOTE | 2020-07-10 11:30 | NUR ---
WOUND CARE NOTE: WOUND CARE IN TO SEE PATIENT PER WOUND CARE REQUEST. PATIENT ADMITTED TO [facility] FOR WEAKNESS. PATIENT HAS NO SKIN INTEGRITY ISSUES AT THIS TIME. PATIENT NAHOMI SCORE IS 19. NO MONITORING BY WOUND CARE TEAM IS NECESSARY.
[2020-07-10 12:56] VITALS: BP 143/88
[2020-07-10] MEDS ORDERED: DEXTROSE (50%) 50ML SYRG IV PRN (15:00)
[2020-07-10 16:42] VITALS: BP 141/84
--- NOTE | 2020-07-10 18:32 | NUR ---
Dialysis Treatment Called [facility] inquiring of pending dialysis treatment today. Spoke with Rachel at exchange, provided staff member with contact information and pt's information. She stated that she would send out a page and have someone contact the nurse. Will continue to monitor. Addendum: 07/10/20 at 1913 by KSENIA WALTON RN RN Spoke with [facility] boat rigger. Per RN, last treatment was and next scheduled is Monday at 1030. RN stated that she would update Dr Hernandez and pending his recommendation, either keep pt's current dialysis treatment for Monday or be dialyzed while in the hospital. Will endorse to SAMINA GARCIA.
--- NOTE | 2020-07-10 19:15 | NUR ---
Opening Shift Note Received report from Jess GARCIA. Assumed care of patient, awake and alert. No S/S of distress/SOB or pain. Instructed on POC and to call for assist PRN. Fall precaution measures in place, will continue to monitor for changes Q1hr and PRN.
--- NOTE | 2020-07-10 19:50 | NUR ---
Dialysis treatment started.
[2020-07-10] MEDS ORDERED: MIDODRINE HCL 10 MG TAB PO ONE (20:30)
[2020-07-10] MEDS ORDERED: EPOETIN ALFA 10,000 UNIT/1 ML VIAL SC ONE (21:00)
[2020-07-10] MEDS ORDERED: ALBUMIN 25% 100 ML IV SCH (21:00)
[2020-07-10 22:00] VITALS: BP 101/67
--- NOTE | 2020-07-10 22:45 | NUR ---
Dialysis treatment finished, removed 2.5L, patient tolerated well.
[2020-07-11 05:00] VITALS: BP 132/81
[2020-07-11 06:22] LABS: Calcium 7.5 mg/dL (8.5-10.1); Magnesium 2.3 mg/dL (1.6-2.6); Potassium 4.2 mmol/L (3.5-5.1)
[2020-07-11 06:25] LABS: BUN/Creatinine Ratio 5.6
[2020-07-11] MEDS: ACCU-CHEK COMFORT CURVE STRIP VI SCH ×3 (06:57→17:00)
[2020-07-11] MEDS: InsuLIN REG 1unit/0.01ml Soln (100units/ml) SC SCH ×3 (06:58→17:00)
--- NOTE | 2020-07-11 07:24 | NUR ---
Opening Note Assumed pt care from SAMINA RN. Pt is a/ox4 with no s/s of distress or SOB. Pt is currently sitting upright in bed with no complaints at this time. Pt had dialysis last night, pt states that he tolerated the treatment well. Toney is present, free of kinks and is draining to gravity. Discussed POC with pt, pt verbalized understanding. Safety measures maintained with call light within reach, bed in lowest position and side rails up. Will continue to monitor for changes.
[2020-07-11] MEDS: CARVEDILOL 12.5 MG TAB PO SCH (07:28)
[2020-07-11] MEDS: ENOXAPARIN SOD 30 MG/0.3 ML SYRINGE SC SCH (08:53)
[2020-07-11] MEDS: PANTOPRAZOLE 40 MG/10 ML VIAL INJ IV SCH (08:53)
[2020-07-11 09:00] VITALS: BP 161/93
--- NOTE | 2020-07-11 10:11 | NUR ---
Elevate BP Reported BP of 161/93 with a HR of 80 reported. Reassessed pt, currently BP is 152/91 with a HR of 81. Pt is asymptomatic and denies any discomfort. Will continue to monitor.
[2020-07-11 10:12] VITALS: BP 152/91
[2020-07-11 12:51] VITALS: BP 150/86
--- NOTE | 2020-07-11 12:53 | NUR ---
Nutrition Assessment Notes please see attached link for complete assessment Est energy needs BW 65 [id number] kcal (30-33 kcal/kg BW), Est protein needs: 78-97g (1.2-1.5 g/kg BW r/t HD, hypoalb). Will reassess prn Addendum: 07/11/20 at [address] La O [address] Amended: Links added.
--- NOTE | 2020-07-11 15:47 | NUR ---
Dr Roach at Bedside MD to see pt. Plans to d/c pt home today with martin catheter. requests that pt f/u with his varnisher plasticoater and his MD. Will implement and continue to monitor.
[2020-07-11 16:16] VITALS: BP 150/86
--- NOTE | 2020-07-11 16:30 | NUR ---
IV and Tele 71 D/C'ed IV to pt's R wrist d/c'ed. Catheter was removed fully intact, site is asymptomatic. Pressure was applied to site for minutes with guaze and then wrapped in coban. Pt instructed to keep dressing on for 30 minutes. Tele 71 d/c'ed and sent back to ICU Tele staff made aware.
--- NOTE | 2020-07-11 17:40 | NUR ---
Pt D/C'ed Off Unit Pt d/c'ed off unit via wheelchair. Pt is a/ox4 with no s/s of distress or SOB. Pt provided all d/c information including follow up appointments, education material, and all questions answered. IV and tele box was d/c'ed. Pt was to leave with martin catheter.
== END 2020-07-11 17:40 | disposition home or self-care (01) | DRG 304 ==
LOC: EDBD 11:33 → ER 11:33 → TELE 11:34 → TELE-WESTW 21:58
PROVIDERS: ATTEND Family Medicine
PROC: 5A1D70Z Performance of Urinary Filtration, Intermittent, Less than 6 Hours Per Day (ICD-10-PCS; principal; 2020-07-10)
DX: I16.0 Hypertensive urgency (principal); N18.6 End stage renal disease; K86.1 Other chronic pancreatitis; E44.0 Moderate protein-calorie malnutrition; E87.6 Hypokalemia; Z99.2 Dependence on renal dialysis; E11.65 Type 2 diabetes mellitus with hyperglycemia; D64.9 Anemia, unspecified; I50.9 Heart failure, unspecified; E87.8 Other disorders of electrolyte and fluid balance, not elsewhere classified; K21.9 Gastro-esophageal reflux disease without esophagitis; G71.00 Muscular dystrophy, unspecified; Z68.21 Body mass index [BMI] 21.0-21.9, adult; D63.8 Anemia in other chronic diseases classified elsewhere; E11.22 Type 2 diabetes mellitus with diabetic chronic kidney disease; I13.2 Hypertensive heart and chronic kidney disease with heart failure and with stage 5 chronic kidney disease, or end stage renal disease; K70.30 Alcoholic cirrhosis of liver without ascites; Z79.4 Long term (current) use of insulin; Z83.3 Family history of diabetes mellitus; R53.1 Weakness
CPT/HCPCS: 36415; 71045; 80048; 80053; 81001; 82962; 83735; 83880; 84484; 85025; 85610; 85730; 87081; 87086; 99291; C9113; G0378; J0885; J1642; P9047

== ENCOUNTER 2021-05-02 14:07 | Inpatient (IN) | payer MEDICARE, MEDICAID ==
[~2021-05-02] VITALS: Ht 162.6 cm; Wt 65.1 kg
[~2021-05-02 14:07] MED LIST changes: +AMLO-489 PO; +AMLO-496 PO; -AMLO5TAB15 PO; +CALC667C PO; +HYDR25TA87 PO; +LEVO250T69 PO; +PANC3600 OR; +SEVE800T8 PO
[2021-05-02 14:49] LABS: Alanine Aminotransferase 20 U/L (16-61); Albumin 1.9 g/dL (3.4-5.0); Anion Gap 15 (5-15); Aspartate Aminotransferase 11 U/L (15-37); BUN/Creatinine Ratio 7.6; Calcium 6.6 mg/dL (8.5-10.1); Chloride 120 mmol/L (98-107); GFR African American 6 mL/min; GFR Non-African American 5 mL/min; Glucose 83 mg/dL (74-106); Potassium 4.6 mmol/L (3.5-5.1); Sodium 142 mmol/L (136-145)
[2021-05-02 14:53] LABS: Alkaline Phosphatase 138 U/L (45-117); Bilirubin, Total 0.2 mg/dL (0.2-1.0); Total Protein 5.5 g/dL (6.4-8.2)
[2021-05-02 14:57] LABS: Blood Urea Nitrogen 86 mg/dL (7-18); Carbon Dioxide 7 mmol/L (21-32)
[2021-05-02 15:46] LABS: Urine Amorphous Crystal FEW /hpf (None Seen); Urine Bacteria MANY /hpf (None Seen); Urine Blood Negative /uL (Negative); Urine Mucus FEW (None Seen); Urine Specific Gravity 1.014 (1.001-1.035); Urine WBC 140 /hpf (0 - 3); Urine WBC Clumps PRESENT /hpf (None Seen)
[2021-05-02] MEDS ORDERED: CALCIUM CHL 100MG/ML 1,000 MG in D5W 5% 100 ML IV ONE (16:15)
[2021-05-02] MEDS ORDERED: SODIUM BICARBONATE 8.4 % INJ 50ML VIAL IV ONE ×2 (16:15→19:15)
[2021-05-02] MEDS ORDERED: cefTRIAXone 1GM/50ML D5W 50 ML IV ONE (16:15)
[2021-05-02 16:30] LABS: Basophils # (auto) 0.1 10 ^3/uL (0-0.2); Eosinophils # (auto) 0.3 10 ^3/uL (0-0.8); Eosinophils % (auto) 2.8 % (0.0-7.0); Hematocrit 29.5 % (41.0-53.0); Hemoglobin 9.9 g/dL (13.5-17.5); Lymphocytes # (auto) 0.9 10 ^3/uL (0.4-5.4); Lymphocytes % (auto) 9.2 % (10.0-50.0); Mean Corpuscular Hemoglobin 31.4 pg (28.0-32.0); Mean Corpuscular Hgb Conc. 33.5 g/dL (32.0-36.0); Mean Corpuscular Volume 93.7 fL (80.0-100.0); Monocytes # (auto) 0.9 10 ^3/uL (0-1.3); Monocytes % (auto) 9.2 % (0.0-12.0); Neutrophils # (auto) 7.7 10 ^3/uL (1.6-8.6); Neutrophils % (auto) 77.8 % (37.0-80.0); Platelet Count (auto) 210 10^3/uL (140-450); Red Blood Cells 3.15 10^6/uL (4.5-5.90); Red Cell Distribution Width 15.5 % (11.8-14.3); White Blood Cell 9.9 10^3/uL (4.4-10.8)
[2021-05-02 16:47] LABS: Partial Thromboplastin Time 35.4 sec (23.0-31.2)
[2021-05-02] MEDS ORDERED: metroNIDAZOLE 500MG/100ML 100 ML IV SCH (17:00)
[2021-05-02] MEDS ORDERED: SODIUM BICARBONATE 50ML VIAL 75 ML in SOD CHL 0.45% 1,000 ML IV ONE (17:45)
[2021-05-02] MEDS ORDERED: DEXTROSE (50%) 50ML SYRG IV PRN (17:45)
[2021-05-02] MEDS ORDERED: ACETAMINOPHEN 500 MG TAB PO PRN (17:45)
[2021-05-02] MEDS ORDERED: NITROGLYCERIN 0.4 MG SL TAB SL PRN (17:45)
[2021-05-02] MEDS ORDERED: HYDROcodone-ACET 5/325MG TAB PO PRN (17:45)
[2021-05-02] MEDS ORDERED: MORPHINE SULF INJ 2 MG/ML SYRINGE 1ML IV PRN ×2 (17:45)
[2021-05-02] MEDS: metroNIDAZOLE 500MG/100ML 100 ML IV SCH (19:00)
[2021-05-02 20:20] LABS: Calcium 7.4 mg/dL (8.5-10.1); Potassium 4.5 mmol/L (3.5-5.1)
[2021-05-02 20:23] LABS: BUN/Creatinine Ratio 7.4
[2021-05-02] MEDS: CLINDAMYCIN 300MG IV 50 ML IV SCH (21:30)
[2021-05-02 21:34] VITALS: BP_SYST 118; BP_SYST 142; BP_DIAS 67; BP_DIAS 73
[2021-05-02 22:01] VITALS: BP 118/67
[2021-05-02] MEDS ORDERED: GABA400C11 PO (22:22)
[2021-05-02] MEDS: InsuLIN REG 1unit/0.01ml Soln (100units/ml) SC SCH (22:22)
[2021-05-02] MEDS: ACCU-CHEK COMFORT CURVE STRIP VI SCH (22:23)
[2021-05-03 00:04] LABS: Amphetamine Screen, Urine NEGATIVE (NEGATIVE); Barbiturate Scree,Urine NEGATIVE (NEGATIVE); Benzodiazephine Screen, Urine NEGATIVE (NEGATIVE); Cannabinoid Screen, Urine NEGATIVE (NEGATIVE); Cocaine Screen, Urine NEGATIVE (NEGATIVE); Opiate Scree,Urine NEGATIVE (NEGATIVE); Phencyclidine Screen, Urine NEGATIVE (NEGATIVE)
[2021-05-03] MEDS: metroNIDAZOLE 500MG/100ML 100 ML IV SCH ×2 (02:50→11:00)
[2021-05-03] MEDS: CLINDAMYCIN 300MG IV 50 ML IV SCH ×3 (04:27→21:10)
[2021-05-03 04:40] VITALS: BP 137/79
[2021-05-03] MEDS: InsuLIN REG 1unit/0.01ml Soln (100units/ml) SC SCH ×4 (06:21→21:10)
[2021-05-03] MEDS: ACCU-CHEK COMFORT CURVE STRIP VI SCH ×4 (06:22→21:10)
[2021-05-03] MEDS ORDERED: SODIUM CHL 0.9% 1000 ML BAG XX ONE (07:00)
[2021-05-03 07:01] LABS: % Iron Saturation 110.3 % (20-55)
[2021-05-03 07:02] LABS: BUN/Creatinine Ratio 7.7; Calcium 6.6 mg/dL (8.5-10.1); Phosphorus 8.1 mg/dL (2.5-4.90); Potassium 4.1 mmol/L (3.5-5.1)
[2021-05-03 08:30] VITALS: BP 150/81
[2021-05-03] MEDS: cefTRIAXone 1GM/50ML D5W 50 ML IV SCH (09:35)
[2021-05-03] MEDS ORDERED: FAMOTIDINE 20 MG TAB PO SCH (10:00)
[2021-05-03] MEDS ORDERED: hydrALAZINE HCL 20 MG/ML VL IV PRN (12:00)
[2021-05-03 12:30] VITALS: BP 133/81
[2021-05-03 16:50] VITALS: BP 164/87
[2021-05-03] MEDS: Glucerna Carbsteady SHAKE Vanilla 8oz PO SCH (17:49)
[2021-05-03 18:09] VITALS: BP 141/66
[2021-05-03] MEDS ORDERED: EPOETIN ALFA-EPBX 10,000 UNIT/1ML VIAL SC ONE (21:00)
[2021-05-03] MEDS: ATORVASTATIN 20 MG TAB PO SCH (21:10)
[2021-05-03 22:00] VITALS: BP 139/72
[2021-05-04] MEDS: CLINDAMYCIN 300MG IV 50 ML IV SCH ×3 (04:12→20:32)
[2021-05-04 05:05] VITALS: BP 146/79
[2021-05-04 05:56] LABS: Basophils # (auto) 0.1 10 ^3/uL (0-0.2); Eosinophils # (auto) 0.2 10 ^3/uL (0-0.8); Eosinophils % (auto) 2.3 % (0.0-7.0); Hematocrit 25.5 % (41.0-53.0); Hemoglobin 8.9 g/dL (13.5-17.5); Lymphocytes # (auto) 1.2 10 ^3/uL (0.4-5.4); Lymphocytes % (auto) 16.7 % (10.0-50.0); Mean Corpuscular Hgb Conc. 34.8 g/dL (32.0-36.0); Mean Corpuscular Volume 89.1 fL (80.0-100.0); Monocytes % (auto) 13.8 % (0.0-12.0); Neutrophils # (auto) 4.7 10 ^3/uL (1.6-8.6); Neutrophils % (auto) 66.2 % (37.0-80.0); Nucleated Red Blood Cells % 0.1 %; Platelet Count (auto) 181 10^3/uL (140-450); Red Blood Cells 2.86 10^6/uL (4.5-5.90); Red Cell Distribution Width 14.6 % (11.8-14.3); White Blood Cell 7.1 10^3/uL (4.4-10.8)
[2021-05-04] MEDS: ACCU-CHEK COMFORT CURVE STRIP VI SCH ×4 (06:35→21:59)
[2021-05-04] MEDS: InsuLIN REG 1unit/0.01ml Soln (100units/ml) SC SCH ×4 (06:35→22:29)
[2021-05-04] MEDS: Glucerna Carbsteady SHAKE Vanilla 8oz PO SCH ×2 (08:00→17:50)
[2021-05-04 09:00] VITALS: BP 143/79
[2021-05-04] MEDS: ASPirin-EC 81 mg tab PO SCH (10:08)
[2021-05-04] MEDS: cefTRIAXone 1GM/50ML D5W 50 ML IV SCH (10:08)
[2021-05-04 10:09] LABS: Calcium 6.2 mg/dL (8.5-10.1); Potassium 4.1 mmol/L (3.5-5.1)
[2021-05-04] MEDS: amLODIPine BESYLATE 5 MG TAB PO SCH (10:09)
[2021-05-04 10:11] LABS: BUN/Creatinine Ratio 6.3
[2021-05-04] MEDS: SEVELAMER 800 MG TAB PO SCH ×2 (12:40→17:50)
[2021-05-04 12:43] VITALS: BP 154/85
[2021-05-04 16:59] VITALS: BP 146/88
[2021-05-04 22:00] VITALS: BP 157/84
[2021-05-04] MEDS: ATORVASTATIN 20 MG TAB PO SCH (22:01)
[2021-05-04] MEDS: CARVEDILOL 12.5 MG TAB PO SCH (22:01)
[2021-05-05] MEDS: CLINDAMYCIN 300MG IV 50 ML IV SCH ×3 (04:08→20:09)
[2021-05-05 05:00] VITALS: BP 161/89
[2021-05-05 05:31] LABS: Basophils # (auto) 0.1 10 ^3/uL (0-0.2); Basophils % (auto) 1.4 % (0.0-2.0); Eosinophils # (auto) 0.2 10 ^3/uL (0-0.8); Eosinophils % (auto) 3.3 % (0.0-7.0); Hemoglobin 9.1 g/dL (13.5-17.5); Lymphocytes # (auto) 1.4 10 ^3/uL (0.4-5.4); Lymphocytes % (auto) 19.7 % (10.0-50.0); Mean Corpuscular Hemoglobin 31.3 pg (28.0-32.0); Mean Corpuscular Hgb Conc. 34.8 g/dL (32.0-36.0); Monocytes # (auto) 0.8 10 ^3/uL (0-1.3); Monocytes % (auto) 12.1 % (0.0-12.0); Neutrophils # (auto) 4.4 10 ^3/uL (1.6-8.6); Neutrophils % (auto) 63.5 % (37.0-80.0); Nucleated Red Blood Cells % 0.1 %; Platelet Count (auto) 201 10^3/uL (140-450); Red Blood Cells 2.89 10^6/uL (4.5-5.90); Red Cell Distribution Width 14.5 % (11.8-14.3); White Blood Cell 6.9 10^3/uL (4.4-10.8)
[2021-05-05 05:38] LABS: INR 1.07 (0.9-1.15); Partial Thromboplastin Time 30.6 sec (23.0-31.2)
[2021-05-05 05:48] LABS: BUN/Creatinine Ratio 5.5; Calcium 6.1 mg/dL (8.5-10.1); Potassium 4.8 mmol/L (3.5-5.1)
[2021-05-05] MEDS: ACCU-CHEK COMFORT CURVE STRIP VI SCH ×4 (06:46→21:45)
[2021-05-05] MEDS: InsuLIN REG 1unit/0.01ml Soln (100units/ml) SC SCH ×4 (06:46→21:52)
[2021-05-05] MEDS ORDERED: SODIUM CHL 0.9% 1000 ML BAG XX ONE (07:00)
[2021-05-05] MEDS: SEVELAMER 800 MG TAB PO SCH ×3 (08:00→18:01)
[2021-05-05] MEDS: Glucerna Carbsteady SHAKE Vanilla 8oz PO SCH ×2 (08:00→18:01)
[2021-05-05 08:52] VITALS: BP 155/85
[2021-05-05] MEDS ORDERED: LORazepam 2MG/ML-1ML VIAL IV ONE (10:30)
[2021-05-05] MEDS: ASPirin-EC 81 mg tab PO SCH (11:41)
[2021-05-05] MEDS: cefTRIAXone 1GM/50ML D5W 50 ML IV SCH (11:41)
[2021-05-05 12:52] VITALS: BP 147/81
[2021-05-05] MEDS: CARVEDILOL 12.5 MG TAB PO SCH ×2 (13:58→21:45)
[2021-05-05] MEDS: amLODIPine BESYLATE 5 MG TAB PO SCH (13:58)
[2021-05-05 16:40] VITALS: BP 148/89
[2021-05-05] MEDS ORDERED: EPOETIN ALFA-EPBX 10,000 UNIT/1ML VIAL SC ONE (21:00)
[2021-05-05] MEDS: ATORVASTATIN 20 MG TAB PO SCH (21:44)
[2021-05-05 22:44] VITALS: BP 110/65
[2021-05-06] MEDS: CLINDAMYCIN 300MG IV 50 ML IV SCH (04:17)
[2021-05-06 05:19] VITALS: BP 127/64
[2021-05-06] MEDS: ACCU-CHEK COMFORT CURVE STRIP VI SCH ×2 (06:24→12:03)
[2021-05-06] MEDS: InsuLIN REG 1unit/0.01ml Soln (100units/ml) SC SCH ×2 (06:29→11:30)
[2021-05-06] MEDS: SEVELAMER 800 MG TAB PO SCH ×2 (08:00→12:14)
[2021-05-06] MEDS: Glucerna Carbsteady SHAKE Vanilla 8oz PO SCH (08:00)
[2021-05-06 09:00] VITALS: BP 117/64
[2021-05-06] MEDS ORDERED: LEVO-28 PO (09:35)
[2021-05-06] MEDS: ASPirin-EC 81 mg tab PO SCH (09:38)
[2021-05-06] MEDS: CARVEDILOL 12.5 MG TAB PO SCH (09:38)
[2021-05-06] MEDS: amLODIPine BESYLATE 5 MG TAB PO SCH (09:38)
[2021-05-06] MEDS ORDERED: levoFLOXacin 500 MG TAB PO ONE (09:45)
[2021-05-06 10:12] VITALS: BP 136/73
[2021-05-06 13:18] VITALS: BP 135/70
== END 2021-05-06 13:45 | disposition home health service (06) | DRG 70 ==
LOC: EDBD 14:07 → ER 14:07 → TELE 17:44 → TELE-WESTW 20:40
PROVIDERS: ADMIT Nurse Practitioner Acute Care; ATTEND Internal Medicine
PROC: 5A1D70Z Performance of Urinary Filtration, Intermittent, Less than 6 Hours Per Day (ICD-10-PCS; principal; 2021-05-03)
DX: G93.41 Metabolic encephalopathy (principal); N18.6 End stage renal disease; E43 Unspecified severe protein-calorie malnutrition; I50.42 Chronic combined systolic (congestive) and diastolic (congestive) heart failure; E87.2 Acidosis; I13.2 Hypertensive heart and chronic kidney disease with heart failure and with stage 5 chronic kidney disease, or end stage renal disease; L97.919 Non-pressure chronic ulcer of unspecified part of right lower leg with unspecified severity; G82.20 Paraplegia, unspecified; K70.30 Alcoholic cirrhosis of liver without ascites; E11.621 Type 2 diabetes mellitus with foot ulcer; E11.21 Type 2 diabetes mellitus with diabetic nephropathy; E11.40 Type 2 diabetes mellitus with diabetic neuropathy, unspecified; D63.1 Anemia in chronic kidney disease; E83.51 Hypocalcemia; Z20.822 Contact with and (suspected) exposure to COVID-19; E66.9 Obesity, unspecified; E11.22 Type 2 diabetes mellitus with diabetic chronic kidney disease; E11.51 Type 2 diabetes mellitus with diabetic peripheral angiopathy without gangrene; F41.9 Anxiety disorder, unspecified; N30.90 Cystitis, unspecified without hematuria; E83.39 Other disorders of phosphorus metabolism; L89.152 Pressure ulcer of sacral region, stage 2; Y84.6 Urinary catheterization as the cause of abnormal reaction of the patient, or of later complication, without mention of misadventure at the time of the procedure; Z99.2 Dependence on renal dialysis; Z68.24 Body mass index [BMI] 24.0-24.9, adult; Y92.89 Other specified places as the place of occurrence of the external cause; Z79.4 Long term (current) use of insulin; Z83.3 Family history of diabetes mellitus; Z91.15 Patient's noncompliance with renal dialysis; Z91.19 Patient's noncompliance with other medical treatment and regimen
CPT/HCPCS: 36415; 36600; 71045; 73700; 80048; 80053; 80307; 80320; 81001; 82140; 82728; 82805; 82962; 83036; 83540; 83550; 83605; 83735; 83880; 84100; 84484; 85025; 85610; 85730; 86850; 86900; 86901; 87081; 87426; 93005; 93926; 96365; 96368; 96375; 97110; 97530; G0378; J0696; J1815; J3490; J7060